=== PATIENT | male | born 1950 | race Caucasian/White ===

== ENCOUNTER 2016-08-26 12:28 | Emergency (ER) | payer OTHER ==
[~2016-08-26] VITALS: Ht 172.7 cm; Wt 63.9 kg
[~2016-08-26 12:28] MED LIST: AMLO10TA4 PO; ASPI81TA28 PO; LISI-792 PO
[2016-08-26 12:32] VITALS: TEMP 36.5; Ht 172.7 cm; Wt 63.9 kg
[2016-08-26 12:59] VITALS: O2SAT 98
[2016-08-26 13:02] LABS: HEMATOCRIT 36.6 % (42-52); MEAN CELL VOLUME 89.1 fL (80-100); MEAN CORPUSCULAR HEMOGLOBIN 31.1 pg (25-34); PLATELET COUNT 196 K/uL (130-400); RED BLOOD COUNT 4.11 M/uL (4.7-6.1); WHITE BLOOD COUNT 7.47 K/uL (4.8-10.8)
--- NOTE | 2016-08-26 13:10 | DIAGNOSTIC IMAGING REPORT ---
CHEST ONE VIEW PORTABLE CLINICAL HISTORY: Atypical chest pain COMPARISON STUDY: 06/28/2015 FINDINGS: The cardiac and mediastinal contours are normal. There is no evidence of focal pulmonary consolidation. There is no evidence of failure. No pleural effusions are visualized.[ There is mild biapical scarring. IMPRESSION: Biapical scarring. No acute findings. Electronically signed by: Kaushik Lemons M.D. 08/26/2016 1:09 PM Dictated Date/Time: 08/26/2016 1:09 PM
[2016-08-26 13:21] LABS: BUN/CREATININE RATIO 16.4 (10-20); CALCIUM 8.9 mg/dl (8.5-10.1); CREATININE 0.81 mg/dl (0.60-1.40); POTASSIUM 3.7 mmol/L (3.5-5.1)
[2016-08-26 13:26] LABS: ALB/GLOB RATIO 1.1 (0.9-2); CKMB/CK RATIO 1.3 (0-3.0)
--- NOTE | 2016-08-26 13:30 | EMERGENCY ROOM VISIT NOTE ---
History Report prepared by Laryibe: Nikki Braswell Under the Supervision of: Dr. Russ Lorenzo D.O. First contact with patient: 13:19 Chief Complaint: CHEST PAIN Stated Complaint: CHEST DISCOMFORT Nursing Triage Summary: pt. had a sudden onset of chest pain, lasted approx 1 minute, numbness in the left arm, symptoms resolved, he said, "I didn't get pain, it just hurt right here", pt. pointed to substernal area History of Present Illness The patient is a 66 year old male who presents to the Emergency Room via ambulance with complaints of an episode of central chest pain about 2 hours ago. The patient notes that the pain started while he was standing on his porch. He also felt nauseated and as if his arms were falling asleep. His symptoms lasted a few minutes before resolving. The patient had a cardiac catheterization last year and was told that everything looked fine. He also had a stress test last year. Denies shortness of breath or other complaints. No history of chest trauma. Source of History: patient Onset: 2 hours ago Position: chest (central) Timing: other (episode) Associated Symptoms: + nausea, No SOB Note: Other symptoms: arms felt like they were falling asleep Review of Systems See HPI for pertinent positives & negatives. A total of 10 systems reviewed and were otherwise negative. Past Medical & Surgical Medical Problems: (1) Acute appendicitis (2) ALCOHOL ABUSE-UNSPEC (3) CHOLESTEATOMA NOS (4) CHRONIC SINUSITIS NOS (5) DEHYDRATION (6) HYPERTENSION NOS (7) NEAR Surgical Problems: (1) H/O right heart catheterization Family History Hypertension Social History Smoking Status: Current Every Day Smoker Alcohol Use: heavy Drug Use: none Marital Status: Housing Status: lives with significant other Occupation Status: employed Current/Historical Medications Scheduled Amlodipine Besylate (Norvasc), 10 MG PO DAILY Aspirin (Aspirin Ec), 81 MG PO DAILY Lisinopril (Zestril), 20 MG PO BID Allergies Coded Allergies: No Known Allergies (Verified , 06/28/15) Physical Exam Vital Signs Date Time Temp Pulse Resp B/P Pulse Ox O2 Delivery O2 Flow Rate FiO2 08/26/16 13:15 60 16 132/66 99 Room Air 08/26/16 12:59 74 18 98 Room Air 08/26/16 12:59 98 Room Air 08/26/16 12:42 61 08/26/16 12:32 36.5 55 16 157/73 100 Room Air 08/26/16 12:32 Room Air Physical Exam CONSTITUTIONAL/VITAL SIGNS: Reviewed / noted above. GENERAL: Non-toxic in appearance. INTEGUMENTARY: Warm, dry, and [place]. HEAD: Normocephalic. EYES: without scleral icterus or trauma. ENT/OROPHARYNX: clear and moist. LYMPHADENOPATHY/NECK: Is supple without lymphadenopathy or meningismus. RESPIRATORY: Lungs clear and equal. CARDIOVASCULAR: Regular rate and rhythm. GI/ABDOMEN: Soft and nontender. No organomegaly or pulsatile mass. No rebound or guarding. Normal bowel sounds. EXTREMITIES: Warm and well perfused. BACK: No CVA tenderness. NEUROLOGICAL: Intact without focal deficits. PSYCHIATRIC: normal affect. MUSCULOSKELETAL: Normally developed with good muscle tone. Medical Decision & Procedures ER Provider Diagnostic Interpretation: Radiology results as stated below per my review and radiologist interpretation: CHEST ONE VIEW PORTABLE CLINICAL HISTORY: Atypical chest pain COMPARISON STUDY: 06/28/2015 FINDINGS: The cardiac and mediastinal contours are normal. There is no evidence of focal pulmonary consolidation. There is no evidence of failure. No pleural effusions are visualized.[ There is mild biapical scarring. IMPRESSION: Biapical scarring. No acute findings. Electronically signed by: Kaushik Lemons M.D. 08/26/2016 1:09 PM Dictated Date/Time: 08/26/2016 1:09 PM Laboratory Results 08/26/16 12:35 08/26/16 12:35 Test 08/26/16 12:35 08/26/16 12:58 Red Blood Count 4.11 M/uL (4.7-6.1) Mean Corpuscular Volume 89.1 fL (80-100) Mean Corpuscular Hemoglobin 31.1 pg (25-34) Mean Corpuscular Hemoglobin Concent 35.0 g/dl (32-36) RDW Standard Deviation 40.2 fL (36.4-46.3) RDW Coefficient of Variation 12.5 % (11.5-14.5) Mean Platelet Volume 10.0 fL (7.4-10.4) Anion Gap 9.0 mmol/L (3-11) Est Creatinine Clear Calc Drug Dose 78.9 ml/min Estimated GFR () 105.8 Estimated GFR (Non- 91.3 BUN/Creatinine Ratio 16.4 (10-20) Calcium Level 8.9 mg/dl (8.5-10.1) Total Bilirubin 0.4 mg/dl (0.2-1) Aspartate Amino Transf (AST/SGOT) 15 U/L (15-37) Alanine Aminotransferase (ALT/SGPT) 15 U/L (12-78) Alkaline Phosphatase 79 U/L (45-117) Total Creatine Kinase 54 U/L (39-308) Creatine Kinase MB 0.7 ng/ml (0.5-3.6) Creatine Kinase MB Ratio 1.3 (0-3.0) Total Protein 7.5 gm/dl (6.4-8.2) Albumin 4.0 gm/dl (3.4-5.0) Globulin 3.5 gm/dl (2.5-4.0) Albumin/Globulin Ratio 1.1 (0.9-2) Bedside Troponin I 0.010 ng/ml (0-0.045) Laboratory results as stated above per my review. ECG Indication: chest pain Rate (beats per minute): 64 Rhythm: normal sinus Findings: LBBB, no ectopy Comparison ECG Date: 08/26/16 Change: no significant change ED Course 1321: The patient was evaluated in room C3. A complete history and physical examination was performed. I discussed the results and findings with the patient. He verbalized agreement of the treatment plan. The patient was discharged home. Medical Decision the differential was considered includes acute myocardial infarction, acute coronary syndrome, myocarditis, pericarditis, pericardial effusions /tamponad, esophageal perforation, thoracic aortic dissection, pulmonary embolism, pneumonia, pneumothorax, pancreatitis, shingles, acute cholecystitis, perforated abdominal viscus. This is a 66-year-old male who presents to the ED with a chief complaint of upper chest discomfort. The patient states that he developed symptoms when he stood up this morning. He states that it was at the base of his throat. It lasted for a couple minutes and was associated with some nausea and his arms felt like it went to sleep. This occurred around 11:30. He states that his symptoms have completely resolved. He denies any other symptoms. No additional associated symptoms. He did have a little nausea when it occurred. The patient states that he had a recent cardiac catheterization the past year that was clean. He denies any other symptoms. His vital signs are normal. His exam was normal. Chest x-ray was negative for acute disease. Cardiac enzymes are normal. EKG shows a normal sinus rhythm with a chronic left bundle branch block. The patient is felt to be stable for discharge and outpatient follow-up. Impression Primary Impression: Non-cardiac chest pain Scribe Attestation The scribe's documentation has been prepared under my direction and personally reviewed by me in its entirety. I confirm that the note above accurately reflects all work, treatment, procedures, and medical decision making performed by me. Departure Information Dispostion Home / Self-Care Referrals Mehdi Suarez M.D. (PCP) Patient Instructions My [facility] Additional Instructions Follow-up with your doctor for further care and evaluation in 1-2 days. Return to the emergency department for worsening or new symptoms or any concerns. You have been examined and treated today on an emergency basis only. This is not a substitute for, or an effort to provide, complete comprehensive medical care. It is impossible to recognize and treat all injuries or illnesses in a single emergency department visit. It is therefore important that you follow up closely with your doctor. Call as soon as possible for an appointment.
[2016-08-26 13:31] LABS: PROTHROMBIN TIME (PATIENT) 10.5 SECONDS (9.0-12.0)
[2016-08-26 13:59] VITALS: BP 133/61; PULSE 58; O2SAT 97
== END 2016-08-26 14:05 | disposition home or self-care (01) ==
LOC: EDBD 12:28 → C.EDC 12:30
DX: R07.89 Other chest pain (principal); R11.0 Nausea; H71.90 Unspecified cholesteatoma, unspecified ear; J32.9 Chronic sinusitis, unspecified; I10 Essential (primary) hypertension; F17.200 Nicotine dependence, unspecified, uncomplicated; F10.10 Alcohol abuse, uncomplicated; Z79.82 Long term (current) use of aspirin; Z82.49 Family history of ischemic heart disease and other diseases of the circulatory system; I44.7 Left bundle-branch block, unspecified

== ENCOUNTER 2016-12-12 08:03 | Emergency (ER) | payer OTHER ==
[~2016-12-12] VITALS: Ht 162.6 cm; Wt 62.7 kg
[2016-12-12 08:04] VITALS: Ht 162.6 cm; Wt 62.7 kg
[2016-12-12] MEDS ORDERED: SODIUM CHLORIDE 0.9% 1000ML 1,000 ML IV STA (08:21)
--- NOTE | 2016-12-12 08:38 | EMERGENCY ROOM VISIT NOTE ---
History First contact with patient: 08:10 Chief Complaint: WEAKNESS Stated Complaint: WEAKNESS,SHAKINESS Nursing Triage Summary: pt c/o generalized weakness and shaking all over since yesterday History of Present Illness The patient is a 66 year old male who presents to the Emergency Room with complaints of generalized weakness, shaking and chills started yesterday afternoon. 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 He does note that it was very hot yesterday and he did not keep up with his drinking as well as he should have. He states that he felt worse this morning, prompting him to come to the emergency department. He denies any pain , just states he feels very weak and tired. Denies any recent changes in medications. He states he has been feeling generally in his normal state of health until yesterday. He denies any headaches, neck pain, chest pain, shortness of breath, palpitations, dizziness or passing out, abdominal pain, back pain, nausea/vomiting, diarrhea, constipation, dysuria or urinary frequency , rash. He does admit to heavy alcohol use in the past, but states he has been sober for one year and denies any recent alcohol use. Review of Systems A complete 10 point review of systems was reviewed with the patient with pertinent positives and negatives as per history of present illness. All else were negative. Past Medical/Surgical History Medical Problems: (1) Acute appendicitis (2) ALCOHOL ABUSE-UNSPEC (3) CHOLESTEATOMA NOS (4) CHRONIC SINUSITIS NOS (5) DEHYDRATION (6) HYPERTENSION NOS (7) NEAR Surgical Problems: (1) H/O right heart catheterization Family History Hypertension Social History Smoking Status: Current Every Day Smoker Alcohol Use: heavy Drug Use: none Marital Status: Housing Status: lives with significant other Occupation Status: employed Current/Historical Medications Scheduled Amlodipine Besylate (Norvasc), 10 MG PO DAILY Aspirin (Aspirin Ec), 81 MG PO DAILY Lisinopril (Zestril), 20 MG PO BID Allergies Coded Allergies: No Known Allergies (Verified , 12/12/16) Physical Exam Vital Signs Date Time Temp Pulse Resp B/P (MAP) Pulse Ox O2 Delivery O2 Flow Rate FiO2 12/12/16 14:02 56 155/88 97 12/12/16 13:01 140/71 12/12/16 12:38 56 12/12/16 12:38 55 20 98 12/12/16 12:31 137/68 12/12/16 12:08 57 20 97 12/12/16 12:01 143/66 12/12/16 11:38 64 15 97 12/12/16 11:08 62 16 97 12/12/16 11:04 60 20 143/66 97 Room Air 12/12/16 11:01 143/66 12/12/16 10:38 61 20 96 12/12/16 10:31 120/60 12/12/16 10:08 61 17 97 12/12/16 10:01 139/61 12/12/16 09:51 139/60 12/12/16 09:00 98 Room Air 12/12/16 08:44 36.2 12/12/16 08:38 68 20 98 12/12/16 08:37 76 12/12/16 08:33 69 19 98 12/12/16 08:32 162/73 12/12/16 08:13 172/76 12/12/16 08:04 36.5 90 18 176/78 98 Room Air Physical Exam CONSTITUTIONAL: No acute distress. Mildly dehydrated. Well appearing and well nourished. Alert and oriented X 4 with normal affect. HEENT: Normocephalic, atraumatic. Pupils equal, round and reactive to light, EOMI. TMs normal. Pharynx normal. Dry mucous membranes. NECK: Supple, full active range of motion without discomfort. RESPIRATORY: Clear to auscultation bilaterally with no wheezing, crackles, rhonchi or stridor. Equal expansion bilaterally. CARDIOVASCULAR: Regular rate and rhythm with no murmurs, rubs or gallops. Normal peripheral perfusion. No edema. GASTROINTESTINAL: Soft, nontender, nondistended. Bowel sounds present in all quadrants. MUSCULOSKELETAL: Full range of motion of all joints without discomfort. INTEGUMENTARY: No rash or other significant dermatologic conditions noted. NEUROLOGIC: Cranial nerves II-XII grossly intact. No focal neurologic deficits noted. No pronator drift. Normal strength, normal sensation, normal coordination, normal gait, normal speech. Medical Decision & Procedures ER Provider Diagnostic Interpretation: CHEST 2 VIEWS ROUTINE CLINICAL HISTORY: cough, weakness, eval pna COMPARISON STUDY: 08/26/2016 FINDINGS: Moderate emphysematous change. Chronic apical pleural thickening. No focal infiltrate. IMPRESSION: Chronic change. No acute process. Laboratory Results 12/12/16 08:30 Red Blood Count 4.49, Mean Corpuscular Volume 91.3, Mean Corpuscular Hemoglobin 31.4, Mean Corpuscular Hemoglobin Concent 34.4, Mean Platelet Volume 9.9, Neutrophils (%) (Auto) 65.0, Lymphocytes (%) (Auto) 27.0, Monocytes (%) (Auto) 5.6, Eosinophils (%) (Auto) 1.5, Basophils (%) (Auto) 0.7, Neutrophils # (Auto) 3.82, Lymphocytes # (Auto) 1.59, Monocytes # (Auto) 0.33, Eosinophils # (Auto) 0.09, Basophils # (Auto) 0.04 12/12/16 08:30 Test 12/12/16 08:12 12/12/16 08:30 12/12/16 08:45 12/12/16 08:57 Urine Color YELLOW Urine Appearance CLEAR (CLEAR) Urine pH 7.0 (4.5-7.5) Urine Specific [place] 1.012 (1.000-1.030) Urine Protein NEG (NEG) Urine Glucose (UA) NEG (NEG) Urine Ketones NEG (NEG) Urine Occult Blood NEG (NEG) Urine Nitrite NEG (NEG) Urine Bilirubin NEG (NEG) Urine Urobilinogen NEG (NEG) Urine Leukocyte Esterase NEG (NEG) White Blood Count 5.88 K/uL (4.8-10.8) Red Blood Count 4.49 M/uL (4.7-6.1) Hemoglobin 14.1 g/dL (14.0-18.0) Hematocrit 41.0 % (42-52) Mean Corpuscular Volume 91.3 fL (80-100) Mean Corpuscular Hemoglobin 31.4 pg (25-34) Mean Corpuscular Hemoglobin Concent 34.4 g/dl (32-36) Platelet Count 208 K/uL (130-400) Mean Platelet Volume 9.9 fL (7.4-10.4) Neutrophils (%) (Auto) 65.0 % Lymphocytes (%) (Auto) 27.0 % Monocytes (%) (Auto) 5.6 % Eosinophils (%) (Auto) 1.5 % Basophils (%) (Auto) 0.7 % Neutrophils # (Auto) 3.82 K/uL (1.4-6.5) Lymphocytes # (Auto) 1.59 K/uL (1.2-3.4) Monocytes # (Auto) 0.33 K/uL (0.11-0.59) Eosinophils # (Auto) 0.09 K/uL (0-0.5) Basophils # (Auto) 0.04 K/uL (0-0.2) RDW Standard Deviation 42.6 fL (36.4-46.3) RDW Coefficient of Variation 12.7 % (11.5-14.5) Immature Granulocyte % (Auto) 0.2 % Immature Granulocyte # (Auto) 0.01 K/uL (0.00-0.02) Anion Gap 5.0 mmol/L (3-11) Est Creatinine Clear Calc Drug Dose 75.9 ml/min Estimated GFR () 107.5 Estimated GFR (Non- 92.8 BUN/Creatinine Ratio 14.9 (10-20) Calcium Level 9.0 mg/dl (8.5-10.1) Magnesium Level 1.9 mg/dl (1.8-2.4) Total Bilirubin 0.7 mg/dl (0.2-1) Direct Bilirubin 0.1 mg/dl (0-0.2) Aspartate Amino Transf (AST/SGOT) 21 U/L (15-37) Alanine Aminotransferase (ALT/SGPT) 21 U/L (12-78) Alkaline Phosphatase 72 U/L (45-117) Troponin I < 0.015 ng/ml (0-0.045) Total Protein 7.7 gm/dl (6.4-8.2) Albumin 4.3 gm/dl (3.4-5.0) Lipase 153 U/L (73-393) Thyroid Stimulating Hormone (TSH) 0.826 uIu/ml (0.300-4.500) Ethyl Alcohol mg/dL < 3.0 mg/dl (0-3) Bedside Lactic Acid Venous 0.77 mmol/L (0.90-1.70) Medications Administered Medications (Trade) Dose Ordered Sig/Turner Route Start Time Stop Time Status Last Admin Dose Admin Sodium Chloride 1,000 ml @ 999 mls/hr Q1H1M STAT IV 12/12/16 08:21 12/12/16 09:21 DC 12/12/16 08:46 999 MLS/HR ECG Indication: weakness Rate (beats per minute): 71 Rhythm: normal sinus Findings: LBBB, no acute ischemic change, no ectopy Change: no significant change (08/26/2016; LBBB is not new) Medical Decision CC: Patient presenting with complaint of generalized weakness, shaking and chills Interpretation of Labs: No leukocytosis, no anemia, no significant electrolyte abnormalities, normal renal function, normal liver enzymes and lipase, lactic acid normal, no UTI. Differential Diagnosis: Includes, but not limited to dehydration, electrolyte abnormality, anemia, infection/sepsis, pneumonia, UTI, ears. Medication Reconciliation: I attest that I have personally reviewed the patient' s current medication list. Vital signs review: I reviewed the patient's vital signs and interpret them as follows: T: Afebrile; BP: Hypertensive; HR: Within normal limits; RR: Within normal limits; Pulse Ox: Within normal limits on room air. Blood pressure screening: The patient was found to have an elevated blood pressure and was referred to their primary doctor for recheck and further treatment. Summary: Patient was evaluated at bedside, history of physical exam performed. Alert and cooperative, no acute distress. Does look mildly dehydrated but not clinically he makes or pale. Neurologic exam intact with no focal deficits. Patient is diffusely tremulous, which is exacerbated with exertion. He is noted to be afebrile, even by rectal temp. Orders were placed at bedside for labs, urine, blood and urine cultures, lactic acid, chest x-ray, EKG, IV fluid bolus to evaluate for possible infection. Patient discussed with Dr. Yoder, who agrees with my assessment and plan. Labs reviewed as above, no significant abnormalities. EKG shows left bundle branch block, this is not new and EKG appears unchanged from previous. Chest x-ray reviewed, no acute abnormality. Patient reassessed multiple times throughout ED stay, he reports resolution of his symptoms after receiving a liter of IV fluids. There is some concern from patient's history that his symptoms could be related to dehydration and over stimulation to heat yesterday. Patient was instructed to continue oral hydration at home and to follow closely with his PCP. He was also given strict return precautions should his symptoms worsen in any way, he verbalized understanding. Patient was discharged home in stable condition and ambulatory. Impression Primary Impression: Generalized weakness Additional Impression: Chills (without fever) Departure Information Dispostion Home / Self-Care Condition GOOD Referrals Mehdi Suarez M.D. (PCP) Patient Instructions ED Weakness [facility], My [facility] Additional Instructions You have been treated in the Emergency Department today for generalized weakness and chills. Laboratory results and imaging have ruled out any emergent reasons for further evaluation or admission. Your symptoms may have been from mild dehydration. It is ESSENTIAL that you maintain adequate hydration with oral fluids! Some suggestions include: - Water is the IDEAL replacement for lost fluids. You should initially sip at the water to help facilitate increased intestinal absorption rate and to decrease the possibility of nausea/vomiting. - Carbohydrate/Electrolyte-Containing Drinks (i.e. Gatorade, Powerade, Pedialyte). All of these are good choices, but it is important to remember that all of these drinks contain a high concentration of sugar. - Popsicles, ice chips, and fruit juices are all other options. - My FAVORITE dehydration remedy is to mix a 1:1 solution of bottled Gatorade with bottled water. This dilution allows for a palatable flavor with added benefit of a reduction in the amount of sugar consumption. As with all Emergency Department visits, you should follow-up with your Primary Care Provider in 2-3 days for reevaluation. Return to the Emergency Department if your current symptoms worsen despite treatment course outlined above, or if you develop any of the following symptoms : Fevers or worsening chills, chest pain, shortness of breath, abdominal pain, worsening weakness, dizziness or passing out, confusion, sluggishness, or decreased urine output. Problem Qualifiers
[2016-12-12 08:44] VITALS: TEMP 36.2
[2016-12-12 08:48] LABS: BASO % 0.7 %; BASO ABS # 0.04 K/uL (0-0.2); COMPLETE YES; EOS % 1.5 %; IG% 0.2 %; LYMPH ABS # 1.59 K/uL (1.2-3.4); MEAN CELL VOLUME 91.3 fL (80-100); MEAN CORPUSCULAR HEMOGLOBIN 31.4 pg (25-34); MEAN CORPUSCULAR HGB CONC 34.4 g/dl (32-36); MEAN PLATELET VOLUME 9.9 fL (7.4-10.4); MONO % 5.6 %; PLATELET COUNT 208 K/uL (130-400); RED BLOOD COUNT 4.49 M/uL (4.7-6.1); WHITE BLOOD COUNT 5.88 K/uL (4.8-10.8)
[2016-12-12 09:00] VITALS: O2SAT 98
[2016-12-12 09:07] LABS: URINE APPEARANCE CLEAR (CLEAR); URINE BILIRUBIN NEG (NEG); URINE COLOR YELLOW; URINE NITRITE NEG (NEG); URINE SPECIFIC GRAVITY 1.012 (1.000-1.030); UROBILINOGEN NEG (NEG)
--- NOTE | 2016-12-12 09:13 | DIAGNOSTIC IMAGING REPORT ---
CHEST 2 VIEWS ROUTINE CLINICAL HISTORY: cough, weakness, eval pna COMPARISON STUDY: 08/26/2016 FINDINGS: Moderate emphysematous change. Chronic apical pleural thickening. No focal infiltrate. IMPRESSION: Chronic change. No acute process. The above report was generated using voice recognition software. It may contain grammatical, syntax or spelling errors. Electronically signed by: Ta Avila M.D. 12/12/2016 9:12 AM Dictated Date/Time: 12/12/2016 9:11 AM
[2016-12-12 09:15] LABS: MANUAL MICROSCOPIC REQUIRED? NO; REVIEW REQ? NO
[2016-12-12 09:17] LABS: BUN/CREATININE RATIO 14.9 (10-20); CREATININE 0.78 mg/dl (0.60-1.40); MAGNESIUM 1.9 mg/dl (1.8-2.4); POTASSIUM 3.8 mmol/L (3.5-5.1)
[2016-12-12 09:28] LABS: THYROID STIMULATING HORMONE 0.826 uIu/ml (0.300-4.500)
--- NOTE | 2016-12-12 10:52 | EMERGENCY ROOM VISIT NOTE ---
ED Visit Note First contact with patient: 08:10 The patient was seen and examined with Day NUNEZ. I agree with the history, physical and findings. Please see the note for disposition and details. The patient has unremarkable laboratory testing. His ECG does not show any new findings. He has a left bundle branch block. He had nonspecific symptoms. No abnormal findings were noted on physical examination. Diagnostic testing was unremarkable. The patient's symptoms had resolved and he feels better. We discussed conservative management and the patient will follow-up closely in the office. If he has any problems she will come back to the emergency department for reevaluation.
[2016-12-12 14:02] VITALS: BP 155/88; PULSE 56; O2SAT 97
== END 2016-12-12 14:03 | disposition home or self-care (01) ==
LOC: C.EDB 08:04 → C.EDA 14:03
DX: R53.1 Weakness (principal); R68.83 Chills (without fever); I44.7 Left bundle-branch block, unspecified; I10 Essential (primary) hypertension; F17.200 Nicotine dependence, unspecified, uncomplicated; Z98.890 Other specified postprocedural states; Z82.49 Family history of ischemic heart disease and other diseases of the circulatory system; Z79.82 Long term (current) use of aspirin; Z79.899 Other long term (current) drug therapy

== ENCOUNTER 2022-09-19 15:14 | Inpatient (IN) ==
[2022-09-19] MEDS ORDERED: SODIUM CHLORIDE 0.9% 250 ML IV PRN (15:25)
--- NOTE | 2022-09-19 15:37 | Emergency Department Note ---
History of Present Illness General Chief complaint: Syncope Time Seen by Provider: 09/19/22 15:18 Source: patient, family (His and daughter did arrive and I discussed the case with them as well), EMS, RN notes reviewed and old records reviewed Mode of arrival: EMS Limitations: no limitations History of Present Illness This patient is a 72-year-old male who was brought in by EMS after having a syncopal episode after having abdominal pain. He was seen earlier today and had abdominal pain that started after he slipped when bending over to pick something up and pulled something. He did receive Percocet. When I initially evaluated him in the room he seems somewhat obtunded and was difficult to understand. He was noted to be hypotensive and 65 we had an IV established and did a second IV with fluid boluses and put him in Trendelenburg his mentation improved significantly he is having some lower abdominal discomfort. He has no chest pain or shortness of breath no trauma or injury no blood or melena stool. The last time he urinated was this morning has had some constipation. Home Medications Medication Instructions Recorded Confirmed Type aspirin 81 mg tablet,delayed 81 mg PO QAM 07/09/20 09/19/22 History release (Adult Low Dose Aspirin) amlodipine 10 mg tablet 10 mg PO DAILY 09/19/22 09/19/22 History fluticasone propionate 50 2 spray intranasal DAILY 09/19/22 09/19/22 History mcg/actuation nasal spray,suspension lisinopril 20 mg tablet 20 mg PO BID 09/19/22 09/19/22 History meclizine 25 mg tablet 25 mg PO TID PRN Dizziness 09/19/22 09/19/22 History oxycodone-acetaminophen 5 mg-325 1 tab PO Q6H PRN pain #14 tabs 09/19/22 09/19/22 Rx mg tablet (Percocet) rosuvastatin 5 mg tablet 5 mg PO DAILY 09/19/22 09/19/22 History Allergies Allergy/AdvReac Type Severity Reaction Status Date / Time No Known Drug Allergies Allergy Verified 06/16/22 14:44 Past Med/Surg History Medical History Diverticula of colon Hypercholesteremia Hypertension Syncope Surgical History H/O right heart catheterization Hx of mastoidectomy Family History Other No family history of adverse response to anesthesia No family history of bleeding disorder Social History Smoking Status: Current every day smoker Tobacco Type: Cigarettes packs per day: 0.5; Hx Alcohol Use: No Hx Substance Use: No Preferred Language: Czech Feels Safe at Home: Yes Review of Systems A total of 10 systems reviewed and were otherwise negative Physical Exam Vital Signs Vital Signs - 24 hr 09/19/22 15:44 Pulse Rate 97 H General: Older male who appears somewhat mottled and mumbling when I try to talk to him in no acute respiratory distress, breathing comfortably on room air. Normal speech HEENT: Normal cephalic atraumatic. Pupils are equal round and reactive to light. Extraocular movements are intact. Oropharynx is pink with moist mucous membranes. No swelling of the mouth lips or tongue. Neck: Supple with a midline trachea. No meningeal signs or stiffness, no JVD or bruits. No Stridor. Chest: Clear to auscultation bilaterally. No wheezes or rhonchi. No increased work of breathing. Heart: Regular rate and rhythm without murmurs or gallops. Abdomen: Soft nontender, nondistended without rebound guarding or rigidity. Extremities: No cyanosis clubbing or edema. No calf tenderness or assymetry Spine/Back. Non tender to palpation. No CVA tenderness Skin: Good turgor without rashes. Neurologic exam: Cranial nerves two through 12 are intact. Motor and sensation are intact and symmetrical throughout. Course Administered Medications Discontinued Medications Ioversol (Optiray 320 500ml) 114 ml IV ONCE ONE Stop: 09/19/22 15:59 Last Admin: 09/19/22 15:58 Dose: 114 ml Documented By: YIMI Ondansetron HCl (Ondansetron Inj 2 Mg/Ml 2 Ml Vial) 4 mg IV NOW STA Stop: 09/19/22 16:03 Last Admin: 09/19/22 16:10 Dose: 4 mg Documented By: PAMELA Critical Care Time Critical Care Time: Yes Total Critical Care Time: 60 Due to the patient's hypotension, being critically ill, need for multiple IVs, IV fluids IV medications multiple consultations frequent reassessment and expediated care, I have personally spent greater than 60 minutes of critical care time in the direct management of this patient. This includes bedside care, interpretation of diagnostic studies, and testing, discussion with consultants, patient, and family members, and other required patient management activities. This 60 minutes is in excess of all separately billable procedures. Medical Decision Making Differential Diagnosis Intra-abdominal process, vasovagal, cardiac disease, aneurysm, infection, ane nader, GI bleed, electrolyte or metabolic abnormality Medical Records Attestation: I reviewed the patient's medical records. Home Medications Current Medication List: was personally reviewed by fl Laboratory Data Attestation: I reviewed the patient's lab results. 09/19/22 15:35 09/19/22 15:35 Lab Results 09/19/22 09/19/22 09/19/22 Range/Units 15:23 15:35 15:35 WBC 6.18 (4.8-10.8) K/ul RBC 4.66 L (4.70-6.10) M/uL Hgb 14.6 (14.0-18.0) g/dl Hct 44.2 (42.0-52.0) % MCV 94.8 (80.0-100.0) fL MCH 31.3 (25.0-34.0) pg MCHC 33.0 (32.0-36.0) g/dL RDW Std Deviation 42.6 (36.4-46.3) fL RDW Coeff of Samantha 12.3 (11.5-14.5) % Plt Count 257 (130-400) K/uL MPV 10.3 (9.4-12.4) fL Immature Gran % (Auto) 0.6 % Neut % (Auto) 75.3 % Lymph % (Auto) 18.9 % [place] % (Auto) 4.5 % Eos % (Auto) 0.2 % Baso % (Auto) 0.5 % Neut # (Auto) 4.65 (1.40-6.50) K/uL Lymph # (Auto) 1.17 L (1.2-3.4) K/uL [place] # (Auto) 0.28 (0.11-0.59) K/uL Eos # (Auto) 0.01 (0-0.50) K/uL Baso # (Auto) 0.03 (0-0.2) K/uL Immature Gran # (Auto) 0.04 (0.01-0.20) K/uL PT 11.9 (9.0-12.0) Seconds INR 1.1 (0.9-1.1) APTT 24.7 (21.0-31.0) Seconds PTT Ratio 0.9 Sodium Potassium Chloride (98-107) mmol/L Carbon Dioxide (21-32) mmol/L Anion Gap BUN (6-23) mg/dl Creatinine (0.6-1.4) mg/dl Est Cr Clr Drug Dosing Est GFR ( Amer) ml/min Est GFR (Non-Af Amer) ml/min BUN/Creatinine Ratio (10-20) Glucose (70-99(Fasting)) mg/dl POC Glucose 83 (70-99) mg/dl Lactate (0.4-2.0) mmol/L Calcium (8.6-10.3) mg/dl Magnesium Total Bilirubin (0.2-1.0) mg/dl AST ALT (7-52) U/L Alkaline Phosphatase (34-104) U/L Troponin I High Sens (0-20) pg/ml Total Protein (6.0-8.3) gm/dl Albumin (3.4-5.0) gm/dl Globulin (2.5-4.0) gm/dl Albumin/Globulin Ratio (0.9-2) TSH (0.300-4.500) uIu/ml Free T4 (0.61-1.60) ng/dl Blood Type Antibody Screen Crossmatch 09/19/22 09/19/22 09/19/22 Range/Units 15:35 15:35 16:22 WBC (4.8-10.8) K/ul RBC (4.70-6.10) M/uL Hgb (14.0-18.0) g/dl Hct (42.0-52.0) % MCV (80.0-100.0) fL MCH (25.0-34.0) pg MCHC (32.0-36.0) g/dL RDW Std Deviation (36.4-46.3) fL RDW Coeff of Samantha (11.5-14.5) % Plt Count (130-400) K/uL MPV (9.4-12.4) fL Immature Gran % (Auto) % Neut % (Auto) % Lymph % (Auto) % [place] % (Auto) % Eos % (Auto) % Baso % (Auto) % Neut # (Auto) (1.40-6.50) K/uL Lymph # (Auto) (1.2-3.4) K/uL [place] # (Auto) (0.11-0.59) K/uL Eos # (Auto) (0-0.50) K/uL Baso # (Auto) (0-0.2) K/uL Immature Gran # (Auto) (0.01-0.20) K/uL PT (9.0-12.0) Seconds INR (0.9-1.1) APTT (21.0-31.0) Seconds PTT Ratio Sodium TNP Potassium TNP Chloride 105 (98-107) mmol/L Carbon Dioxide 18 L (21-32) mmol/L Anion Gap TNP BUN 22 (6-23) mg/dl Creatinine 1.90 H (0.6-1.4) mg/dl Est Cr Clr Drug Dosing Not Reportable Est GFR ( Amer) 39.4 ml/min Est GFR (Non-Af Amer) 34.0 ml/min BUN/Creatinine Ratio 11.6 (10-20) Glucose 85 (70-99(Fasting)) mg/dl POC Glucose (70-99) mg/dl Lactate (0.4-2.0) mmol/L Calcium 9.4 (8.6-10.3) mg/dl Magnesium TNP Total Bilirubin 0.9 (0.2-1.0) mg/dl AST TNP ALT 12 (7-52) U/L Alkaline Phosphatase 77 (34-104) U/L Troponin I High Sens 177.9 H* (0-20) pg/ml Total Protein 6.4 (6.0-8.3) gm/dl Albumin 3.8 (3.4-5.0) gm/dl Globulin 2.6 (2.5-4.0) gm/dl Albumin/Globulin Ratio 1.5 (0.9-2) TSH 6.984 H (0.300-4.500) uIu/ml Free T4 1.00 (0.61-1.60) ng/dl Blood Type A Positive Antibody Screen NEGATIVE Crossmatch See Detail 09/19/22 09/19/22 09/19/22 Range/Units 16:22 16:39 17:02 WBC (4.8-10.8) K/ul RBC (4.70-6.10) M/uL Hgb (14.0-18.0) g/dl Hct (42.0-52.0) % MCV (80.0-100.0) fL MCH (25.0-34.0) pg MCHC (32.0-36.0) g/dL RDW Std Deviation (36.4-46.3) fL RDW Coeff of Samantha (11.5-14.5) % Plt Count (130-400) K/uL MPV (9.4-12.4) fL Immature Gran % (Auto) % Neut % (Auto) % Lymph % (Auto) % [place] % (Auto) % Eos % (Auto) % Baso % (Auto) % Neut # (Auto) (1.40-6.50) K/uL Lymph # (Auto) (1.2-3.4) K/uL [place] # (Auto) (0.11-0.59) K/uL Eos # (Auto) (0-0.50) K/uL Baso # (Auto) (0-0.2) K/uL Immature Gran # (Auto) (0.01-0.20) K/uL PT (9.0-12.0) Seconds INR (0.9-1.1) APTT (21.0-31.0) Seconds PTT Ratio Sodium 138 Potassium 3.6 Chloride (98-107) mmol/L Carbon Dioxide (21-32) mmol/L Anion Gap BUN (6-23) mg/dl Creatinine (0.6-1.4) mg/dl Est Cr Clr Drug Dosing Est GFR ( Amer) ml/min Est GFR (Non-Af Amer) ml/min BUN/Creatinine Ratio (10-20) Glucose (70-99(Fasting)) mg/dl POC Glucose (70-99) mg/dl Lactate 6.7 H* 1.1 (0.4-2.0) mmol/L Calcium (8.6-10.3) mg/dl Magnesium 1.6 L Total Bilirubin (0.2-1.0) mg/dl AST 21 ALT (7-52) U/L Alkaline Phosphatase (34-104) U/L Troponin I High Sens (0-20) pg/ml Total Protein (6.0-8.3) gm/dl Albumin (3.4-5.0) gm/dl Globulin (2.5-4.0) gm/dl Albumin/Globulin Ratio (0.9-2) TSH (0.300-4.500) uIu/ml Free T4 (0.61-1.60) ng/dl Blood Type Antibody Screen Crossmatch Imaging Data Attestation: I personally reviewed and interpreted this imaging study as follows: My Impression: Chest x-rayno acute infiltrate, failure, pneumothorax seen. No free air. Radiologist's Impression: Chest X-Ray 09/19/22 15:24 XR chest 1V portable HISTORY: 72 years-old Male weakness acute weakness COMPARISON: 08/26/2016 TECHNIQUE: AP view of the chest FINDINGS: Upper lobe fibrotic changes redemonstrated with superior hilar retraction. Cardiac silhouette is normal. No pneumothorax, pleural effusion or overt pulmonary edema. Bones appear grossly intact. IMPRESSION: Biapical pleural-parenchymal scarring redemonstrated without acute process. ACT 112: Negative or not required by law. The above report was generated using voice recognition software. It may contain grammatical, syntax or spelling errors. Electronically signed by: Kev Navarro M.D. 09/19/2022 3:45 PM Abdomen/Pelvis CT 09/19/22 15:[address] WITH IV CONTRAST HISTORY: Acute generalized abdominal pain with hypotension hypotensive, abd pain TECHNIQUE: Multiaxial CT images of the abdomen and pelvis were performed following the IV administration of 114 cc of Optiray, A dose lowering technique was utilized adhering to the principles of ALARA. COMPARISON STUDY: CTA chest of same day, CT abdomen pelvis 06/28/2015 FINDINGS: Mild cardiomegaly with coronary artery calcifications. Mild bibasilar atelectasis. Limited study secondary to upper extremity positioning and respiratory motion. Diminutive spleen. Unremarkable adrenal glands, pancreas, gallbladder and liver. The kidneys are within normal limits. No hydronephrosis. Heterogeneous prostamegaly with a 1.9 cm focus of decreased the left central prostate. Atherosclerosis of the aorta and branch vessels. No aneurysm identified. There is no lymphadenopathy. Patent portal vein. There is a large amount of pneumoperitoneum, as pronounced within the central and upper anterior abdomen. Fluid-filled distended distal esophagus. Distended fluid-filled loops of jejunum measure up to approximately 3.5 cm. Colonic diverticulosis. Wall thickening is noted throughout several loops of large and small bowel. Appendectomy. Exact site of bowel perforation is not identified. No drainable fluid collection. Small volume of abdominal pelvic ascites with m esenteric edema. Healed chronic posterior left-sided rib fractures. No acute fracture. Degenerative changes of the spine, pelvis and hips. IMPRESSION: 1. Large amount of pneumoperitoneum compatible with perforated viscus. Definite site of perforation is not definitively seen however there is colonic diverticular disease which raises the possibility of colonic perforation. 2. Several loops of small bowel are mildly dilated and fluid-filled and several loops of large and small bowel demonstrate wall thickening, likely reactive secondary to the perforated viscus. A low-grade small bowel obstruction could appear similarly. 3. Small volume of abdominopelvic ascites. 4. Distended fluid-filled distal esophagus. 5. Prostamegaly with chronic bladder outlet obstruction. 6. Additional findings as above. ACT 112: Negative or not required by law. The above report was generated using voice recognition software. It may contain grammatical, syntax or spelling errors. Electronically signed by: Kev Navarro M.D. 09/19/2022 4:11 PM Chest CTA 09/19/22 15:33 CT angio chest PE protocol HISTORY: 72 years-old Male with PE. Acute hypotension with shortness of breath, chest and abdominal pain TECHNIQUE: Multiple CTA images of the chest were obtained after the intravenous administration of 114 ml Optiray. Coronal and sagittal MIPS were obtained from the axial data set and were submitted for review. All measurements were obtained according to NASCET criteria. A dose lowering technique was utilized adhering to the principles of ALARA. COMPARISON: CT abdomen and pelvis of same day, chest CT 04/22/2012 FINDINGS: CTA: Mild cardiomegaly. Extensive coronary artery calcifications. Atherosclerosis of the aorta without aneurysm. No pulmonary emboli identified. CT CHEST: No thyroid nodule or lymphadenopathy. Moderate severe emphysema with biapical pleural-parenchymal scarring. Mild subsegmental bibasilar atelectasis. Bronchial wall thickening as suggestive of pneumonia. Mild tracheobronchial secretions. Large amount of upper abdominal pneumoperitoneum with ascites. Fluid-filled and distended esophagus. Layering debris noted within the gastric lumen. Age- indeterminate compression deformities of the T4, T6 and T7 vertebral bodies without retropulsion which are favored to be chronic. IMPRESSION: 1. Emphysema with bronchitis and mild tracheobronchial secretions. 2. Large amount of upper abdominal pneumoperitoneum with ascites. Findings comp atible with perforated viscus. Please refer to the CT abdomen and pelvis study of same day for further discussion. 3. No pulmonary emboli identified. 4. Distended fluid-filled esophagus. ACT 112: Negative or not required by law. The above report was generated using voice recognition software. It may contain grammatical, syntax or spelling errors. Electronically signed by: Kev Navarro M.D. 09/19/2022 4:[address] 09/19/22 15:47 CT head/brain wo con CLINICAL HISTORY: 72 years-old Male with syncope. Acute syncope TECHNIQUE: Multiple axial CT images of the head were obtained without contrast. A dose lowering technique was utilized adhering to the principles of ALARA. CT DOSE: 1472.59 mGy.cm COMPARISON: 11/22/2014 FINDINGS: No acute intracranial hemorrhage, midline shift, intracranial mass, hydroceph alus, territorial ischemia or abnormal extra-axial collection. Involutional changes with chronic microvascular ischemic disease. Low-lying cerebellar tonsils. Cerebral vascular calcifications. The calvarium is intact. Large left mastoid and middle ear effusions. Opacified right maxillary sinus with volume loss. Severe mucosal thickening of the sphenoid sinuses. The right mastoid air cells are clear. IMPRESSION: 1. No acute intracranial abnormality identified. 2. Paranasal sinus disease as above with chronic large left mastoid and middle ear effusions. ACT 112: Negative or not required by law. The above report was generated using voice recognition software. It may contain grammatical, syntax or spelling errors. Electronically signed by: Kev Navarro M.D. 09/19/2022 4:14 PM ECG Data Attestation: I personally reviewed and interpreted this ECG as follows: Indication: + weakness Rate (beats per minute): 107 Rhythm: + sinus tachycardia ECG Intervals/blocks: + Left bundle branch block ECG [place]: + Normal ECG ST segments: + Normal ST segments ECG Findings: no PACs or no PVCs Comparison ECG Date: from (12/12/16) Change: no significant change MDM Narrative This patient comes in as described above. I saw him when he arrived is very concerned that his presentation. He did appear somewhat mottled and they were cycling a blood pressure came back at 65 and put him in Trendelenburg established a second IV. With this his mentation improved and he said he was having lower abdominal pain. He has some nausea vomiting earlier but denies any now he had no chest pain or shortness of breath. Dr. Lorenzo did put an ultras ound probe on his abdomen did not see any large aneurysm or free fluid. I did order stat CAT scan of the chest and abdomen as well as multiple blood testing and type and cross. We established a second IV. He was given 2 L IV normal saline bolus due to his hypotension. EKG does not show any findings to suggest acute coronary syndrome. Chest x-ray was unremarkable for acute findings to room A1 and then promptly moved him to the CAT scan. CAT scan shows a large amount of pneumoperitoneum consistent with a perforation of unknown certain etiology. I am concerned that he is hypotensive and perforated. With 2 L of fluid his blood pressure came up into the 110s and he looks quite a bit better he is mentating better. I did give him Zosyn 4.5 g IV and I did discuss the antibiotic choice with our ED pharmacist. I consulted Dr. Duran from surgery as a he will likely need to go to the OR. His white count was normal and his hemoglobin is normal. I also did discuss case with Dr. Jerome as the patient will likely go to the ICU will as well. Dr. Jerome promptly came down and saw the patient an put a central line and an A-line as well and given the patient's hypotension. I also did discuss the case with Dr. Hooks, the on-call anesthesiologist and gave him a heads up that the patient will likely be coming to the OR. He was seen by Dr. Duran and she will be taken to the operating room. His lactic acid came back significant elevated 6.7. With the fluid resuscitation the patient was looking better but still remain critically ill. He had no airway compromise. In regards to his sepsis, he did receive a total of 3 L IV of normal saline in the ER which is greater than 30/kg, additionally due to the hypotension we also started him on a Nor epinephrine IV drip as the pressure was still on the low side, prior to going to the OR. Continuous cardiac monitoring: Orders placed in EMR for continuous cardiac monitoring. Upon my evaluation patient to be in sinus tachycardia with rate 100 Impression & Plan Sepsis, Abdominal pain, Hypotension, Perforated abdominal viscus, Elevated lactic acid level, Elevated troponin Discharge Plan Visit Data Chief Complaint: Syncope ED Provider: Rg Hooper Discharge Problem: Sepsis, Abdominal pain, Hypotension, Perforated abdominal viscus, Elevated lactic acid level, Elevated troponin Forms Stand Alone Forms: My [facility] Prescriptions Prescriptions: No Action aspirin [Adult Low Dose Aspirin] 81 mg tablet,delayed release (DR/EC) 81 mg PO QAM oxycodone-acetaminophen [Percocet] 5-325 mg tablet 1 tab PO Q6H PRN (Reason: pain) Qty: 14 0RF lisinopril 20 mg Tablet 20 mg PO BID meclizine 25 mg Tablet 25 mg PO TID PRN (Reason: Dizziness) amlodipine 10 mg Tablet 10 mg PO DAILY rosuvastatin 5 mg Tablet 5 mg PO DAILY fluticasone propionate 50 mcg/actuation [place],Suspension 2 spray INTRANASAL DAILY Rx Instructions: administer into each nostril Referrals Referrals: Mehdi Suarez MD [Primary Care Provider] - Sepsis Qualifiers: Sepsis type: sepsis due to unspecified organism Sepsis acute organ dysfunction status: with acute organ dysfunction Severe sepsis acute organ dysfunction type: acute renal failure Acute renal failure type: unspecified Abdominal pain Qualifiers: Abdominal location: lower abdomen, unspecified Qualified Code(s): R10.30 - Lower abdominal pain, unspecified Hypotension Qualifiers: Hypotension type: unspecified hypotension type Qualified Code(s): I95.9 - Hypotension, unspecified
--- NOTE | 2022-09-19 15:46 | XRay Report ---
XR chest 1V portable HISTORY: 72 years-old Male weakness acute weakness COMPARISON: 08/26/2016 TECHNIQUE: AP view of the chest FINDINGS: Upper lobe fibrotic changes redemonstrated with superior hilar retraction. Cardiac silhouette is norm al. No pneumothorax, pleural effusion or overt pulmonary edema. Bones appear grossly intact. IMPRESSION: Biapical pleural-parenchymal scarring redemonstrated without acute process. ACT 112: Negative or not required by law. The above report was generated using voice recognition software. It may contain grammatical, syntax o r spelling errors. Electronically signed by: Kev Navarro M.D. 09/19/2022 3:45 PM
[2022-09-19] MEDS ORDERED: OPTIRAY 320 500ml IV ONE (15:58)
[2022-09-19] MEDS ORDERED: PIPERACILLIN/TAZOBACTAM 4.5 GM/120 ML BAG IV ONE (16:00)
[2022-09-19 16:01] LABS: Hematocrit (blood only) 44.2 % (42.0-52.0); Hemoglobin 14.6 g/dl (14.0-18.0); Mean Corpuscular Hemoglobin 31.3 pg (25.0-34.0); Mean Corpuscular Volume 94.8 fL (80.0-100.0); Mean Platelet Volume 10.3 fL (9.4-12.4); Platelet Count 257 K/uL (130-400); RDW Coefficient of Variation 12.3 % (11.5-14.5); RDW Standard Deviation 42.6 fL (36.4-46.3); Red Blood Count 4.66 M/uL (4.70-6.10); White Blood Count 6.18 K/ul (4.8-10.8)
[2022-09-19] MEDS ORDERED: ONDANSETRON INJ 2 MG/ML 2 ML VIAL ONE (16:01)
[2022-09-19] MEDS ORDERED: ONDANSETRON INJ 2 MG/ML 2 ML VIAL IV STA (16:02)
--- NOTE | 2022-09-19 16:13 | CT Scan Report ---
ABDOMEN AND PELVIS CT WITH IV CONTRAST HISTORY: Acute generalized abdominal pain with hypotension hypotensive, abd pain TECHNIQUE: Multiaxial CT images of the abdomen and pelvis were performed following the IV administrat ion of 114 cc of Optiray, A dose lowering technique was utilized adhering to the principles of ALARA . COMPARISON STUDY: CTA chest of same day, CT abdomen pelvis 06/28/2015 FINDINGS: Mild cardiomegaly with coronary artery calcifications. Mild bibasilar atelectasis. Limited study secondary to upper extremity positioning and respiratory motion. Diminutive spleen. Unremarkable adrenal glands, pancreas, gallbladder and liver. The kidneys are with in normal limits. No hydronephrosis. Heterogeneous prostamegaly with a 1.9 cm focus of decreased the left central prostate. Atherosclerosis of the aorta and branch vessels. No aneurysm identified. There is no lymphadenopathy. Patent portal vein. There is a large amount of pneumoperitoneum, as pronounced within the central and upper anterior abdo men. Fluid-filled distended distal esophagus. Distended fluid-filled loops of jejunum measure up to a pproximately 3.5 cm. Colonic diverticulosis. Wall thickening is noted throughout several loops of lar ge and small bowel. Appendectomy. Exact site of bowel perforation is not identified. No drainable flu id collection. Small volume of abdominal pelvic ascites with mesenteric edema. Healed chronic posteri or left-sided rib fractures. No acute fracture. Degenerative changes of the spine, pelvis and hips. IMPRESSION: 1. Large amount of pneumoperitoneum compatible with perforated viscus. Definite site of perforation i s not definitively seen however there is colonic diverticular disease which raises the possibility of colonic perforation. 2. Several loops of small bowel are mildly dilated and fluid-filled and several loops of large and sm all bowel demonstrate wall thickening, likely reactive secondary to the perforated viscus. A low-grad e small bowel obstruction could appear similarly. 3. Small volume of abdominopelvic ascites. 4. Distended fluid-filled distal esophagus. 5. Prostamegaly with chronic bladder outlet obstruction. 6. Additional findings as above. ACT 112: Negative or not required by law. The above report was generated using voice recognition software. It may contain grammatical, syntax o r spelling errors. Electronically signed by: Kev Navarro M.D. 09/19/2022 4:11 PM
--- NOTE | 2022-09-19 16:16 | CT Scan Report ---
CT head/brain wo con CLINICAL HISTORY: 72 years-old Male with syncope. Acute syncope TECHNIQUE: Multiple axial CT images of the head were obtained without contrast. A dose lowering tech nique was utilized adhering to the principles of ALARA. CT DOSE: 1472.59 mGy.cm COMPARISON: 11/22/2014 FINDINGS: No acute intracranial hemorrhage, midline shift, intracranial mass, hydrocephalus, territorial ischem ia or abnormal extra-axial collection. Involutional changes with chronic microvascular ischemic disea se. Low-lying cerebellar tonsils. Cerebral vascular calcifications. The calvarium is intact. Large left mastoid and middle ear effusions. Opacified right maxillary sinu s with volume loss. Severe mucosal thickening of the sphenoid sinuses. The right mastoid air cells ar e clear. IMPRESSION: 1. No acute intracranial abnormality identified. 2. Paranasal sinus disease as above with chronic large left mastoid and middle ear effusions. ACT 112: Negative or not required by law. The above report was generated using voice recognition software. It may contain grammatical, syntax o r spelling errors. Electronically signed by: Kev Navarro M.D. 09/19/2022 4:14 PM
--- NOTE | 2022-09-19 16:22 | CT Scan Report ---
CT angio chest PE protocol HISTORY: 72 years-old Male with PE. Acute hypotension with shortness of breath, chest and abdominal pain TECHNIQUE: Multiple CTA images of the chest were obtained after the intravenous administration of 114 ml Optiray. Coronal and sagittal MIPS were obtained from the axial data set and were submitted for review. All measurements were obtained according to NASCET criteria. A dose lowering technique was u tilized adhering to the principles of ALARA. COMPARISON: CT abdomen and pelvis of same day, chest CT 04/22/2012 FINDINGS: CTA: Mild cardiomegaly. Extensive coronary artery calcifications. Atherosclerosis of the aorta without ane urysm. No pulmonary emboli identified. CT CHEST: No thyroid nodule or lymphadenopathy. Moderate severe emphysema with biapical pleural-parenchymal sca rring. Mild subsegmental bibasilar atelectasis. Bronchial wall thickening as suggestive of pneumonia. Mild tracheobronchial secretions. Large amount of upper abdominal pneumoperitoneum with ascites. Fluid-filled and distended esophagus. Layering debris noted within the gastric lumen. Age-indeterminate compression deformities of the T4, T6 and T7 vertebral bodies without retropulsion which are favored to be chronic. IMPRESSION: 1. Emphysema with bronchitis and mild tracheobronchial secretions. 2. Large amount of upper abdominal pneumoperitoneum with ascites. Findings compatible with perforated viscus. Please refer to the CT abdomen and pelvis study of same day for further discussion. 3. No pulmonary emboli identified. 4. Distended fluid-filled esophagus. ACT 112: Negative or not required by law. The above report was generated using voice recognition software. It may contain grammatical, syntax o r spelling errors. Electronically signed by: Kev Navarro M.D. 09/19/2022 4:19 PM
--- NOTE | 2022-09-19 16:22 | Anesthesiology Consultation ---
Date of Service September 19, 2022 Assessment & Plan (1) Encounter for pre-operative examination: Chart Review Chart Review: Acceptable Risk for Surgery (emergency surgery for abdominal free air) History Height/Weight Weight: 81.647 kg Allergies Allergy/AdvReac Type Severity Reaction Status Date / Time No Known Drug Allergies Allergy Verified 06/16/22 14:44 Medications Home Medications Medication Instructions Recorded Confirmed Last Taken aspirin 81 mg tablet,delayed 81 mg PO QAM 07/09/20 09/19/22 Unknown release (Adult Low Dose Aspirin) amlodipine 10 mg tablet 10 mg PO DAILY 09/19/22 09/19/22 Unknown fluticasone propionate 50 2 spray intranasal DAILY 09/19/22 09/19/22 Unknown mcg/actuation nasal spray,suspension lisinopril 20 mg tablet 20 mg PO BID 09/19/22 09/19/22 Unknown meclizine 25 mg tablet 25 mg PO TID PRN Dizziness 09/19/22 09/19/22 Unknown oxycodone-acetaminophen 5 mg-325 1 tab PO Q6H PRN pain #14 tabs 09/19/22 09/19/22 Unknown mg tablet (Percocet) rosuvastatin 5 mg tablet 5 mg PO DAILY 09/19/22 09/19/22 Unknown Past Medical History Medical History (Updated 09/19/22 @ 16:24 by Jaren Hooks MD) Diverticula of colon Hypercholesteremia Hypertension Syncope Past Family History Family History Other No family history of adverse response to anesthesia No family history of bleeding disorder Past Surgical History Surgical History (Updated 09/19/22 @ 16:23 by Jaren Hooks MD) H/O right heart catheterization Hx of mastoidectomy Social History Smoking Status: Current every day smoker Hx Alcohol Use: No Hx Substance Use: No Physical Exam Vital Signs Last Vital Signs Pulse 97 H 09/19/22 15:44 Testing Laboratory Results 09/19/22 15:35 09/19/22 15:23 POC Glucose 83
[2022-09-19 16:26] LABS: Basophils # (auto) 0.03 K/uL (0-0.2); Basophils % (auto) 0.5 %; Eosinophils # (auto) 0.01 K/uL (0-0.50); Eosinophils % (auto) 0.2 %; Immature Granulocytes # (auto) 0.04 K/uL (0.01-0.20); Immature Granulocytes % (auto) 0.6 %; Lymphocytes # (auto) 1.17 K/uL (1.2-3.4); Lymphocytes % (auto) 18.9 %; Monocytes # (auto) 0.28 K/uL (0.11-0.59); Monocytes % (auto) 4.5 %; Neutrophils # (auto) 4.65 K/uL (1.40-6.50); Neutrophils % (auto) 75.3 %
[2022-09-19 16:29] LABS: INR 1.1 (0.9-1.1); Partial Thromboplastin Ratio 0.9; Partial Thromboplastin Time 24.7 Seconds (21.0-31.0); Prothrombin Time 11.9 Seconds (9.0-12.0)
[2022-09-19 16:31] LABS: Thyroid Stimulating Hormone 6.984 uIu/ml (0.300-4.500)
[2022-09-19] MEDS ORDERED: MIDAZOLAM HCL 1 MG/ML 2ML VIAL ONE ×2 (16:36→18:59)
[2022-09-19] MEDS ORDERED: fentaNYL citrate PF 100 MCG/2 ML VIAL ONE (16:36)
[2022-09-19 16:38] LABS: Troponin I High Sensitivity 177.9 pg/ml (0-20)
[2022-09-19] MEDS ORDERED: ALBUMIN HUMAN 5% 12.5 GM/250 ML VIAL IV ONE (16:41)
[2022-09-19 16:48] LABS: Alanine Aminotransferase 12 U/L (7-52); Albumin Globulin Ratio 1.5 (0.9-2); Albumin Level 3.8 gm/dl (3.4-5.0); Alkaline Phosphatase 77 U/L (34-104); BUN Creatinine Ratio 11.6 (10-20); Bilirubin,Total 0.9 mg/dl (0.2-1.0); Blood Urea Nitrogen 22 mg/dl (6-23); Calcium 9.4 mg/dl (8.6-10.3); Carbon Dioxide 18 mmol/L (21-32); Chloride 105 mmol/L (98-107); Est GFR (African American) 39.4 ml/min; Globulin 2.6 gm/dl (2.5-4.0); Glucose 85 mg/dl (70-99(Fasting)); Total Protein 6.4 gm/dl (6.0-8.3)
[2022-09-19] MEDS ORDERED: SODIUM CHLORIDE 0.9% 1000ML 1,000 ML IV ONE ×5 (16:51→22:54)
--- NOTE | 2022-09-19 16:55 | Surgery Consultation ---
Date of Consultation September 19, 2022 Assessment & Plan (1) Intra-abdominal free air of unknown etiology: Pt presents acutely ill with hypotension, syncope and CT scan showing pneumoperitoneum of unclear etiology. Discussed need for exploratory laparotomy with he and his and daughter - explained possible need for bowel resection or ostomy. Risks of bleeding, infection, worsening pulmonary, cardiac or renal status, injury to other structures, abscess, hernia, need for additional surgery later all discussed. [place] of the situation and his current medical condition reviewed. Expectation for a course of time in the ICU, potentially intubated, reviewed. All questions answered and consent signed. For OR tonight, will continue IVF hydration, continue IV antibiotics. Plan on ng tube, armijo catheter as well as central venous access and arterial line. (2) Hypotension: History of Present Illness Reason for Consultation: free air Requesting Physician: Rg Hooper MD History of Present Illness 72 yr old man with free air. Seen earlier this am for what was thought to be a pulled muscle. Had bent over to pick something up and when twisted, felt a sharp pain in his abdomen- lower pubic area. [place] diaphoretic from the intensity of the pain. Seen in the ER and pain had improved. Thought to be a muscle strain and discharged home. Represented this evening after syncopal episode. Was hypotensive with SBP 65, obtunded/ confused. Recieved IVF resuscitation. CT imaging done and showed intra-abdominal free air. At the time of my visit, he was having an arterial line placed. Central venous access had been obtained. He was mentating and able to communicate. Daughter notes he had a history of a liver tear year ago treated nonoperatively. Does not follow with doctor's much so no other known medical issues. Allergies Allergy/AdvReac Type Severity Reaction Status Date / Time No Known Drug Allergies Allergy Verified 06/16/22 14:44 Home Medications Medication Instructions Recorded Confirmed Type aspirin 81 mg tablet,delayed 81 mg PO QAM 07/09/20 09/19/22 History release (Adult Low Dose Aspirin) amlodipine 10 mg tablet 10 mg PO DAILY 09/19/22 09/19/22 History fluticasone propionate 50 2 spray intranasal DAILY 09/19/22 09/19/22 History mcg/actuation nasal spray,suspension lisinopril 20 mg tablet 20 mg PO BID 09/19/22 09/19/22 History meclizine 25 mg tablet 25 mg PO TID PRN Dizziness 09/19/22 09/19/22 History oxycodone-acetaminophen 5 mg-325 1 tab PO Q6H PRN pain #14 tabs 09/19/22 09/19/22 Rx mg tablet (Percocet) rosuvastatin 5 mg tablet 5 mg PO DAILY 09/19/22 09/19/22 History Patient History Medical History Diverticula of colon Hypercholesteremia Hypertension Syncope Surgical History H/O right heart catheterization Hx of mastoidectomy Family History Other No family history of adverse response to anesthesia No family history of bleeding disorder Social History Smoking Status: Current every day smoker Tobacco Type: Cigarettes packs per day: 0.5; Hx Alcohol Use: No Hx Substance Use: No Preferred Language: [place] Feels Safe at Home: Yes Review of Systems Review of Systems: All systems reviewed & are unremarkable except as noted in HPI & below Ear, Nose, Mouth, Throat: wears hearing aid Physical Exam Constitutional: + acute distress and + ill appearing Eyes: + anicteric sclerae ENMT: Ears: + hearing impairment (hearing aid right ear in place); no external ear abnormality Respiratory: normal respiratory effort, lungs clear to auscultation Cardiovascular: Rate/Rhythm: regular rate and regular rhythm Heart Sounds: no murmur Gastrointestinal (Abdomen): Inspection/Auscultation: + abdomen distended and + hypoactive bowel sounds Percussion/Palpation: + abdomen tender Neurologic: awake; no focal motor deficits Psychiatric: A+Ox3, euthymic affect Results & Data Vital Signs (Past 12 Hours) Vital Signs Pulse 09/19/22 15:44 97 H Laboratory Results 09/19/22 09/19/22 09/19/22 Range/Units 16:39 16:22 16:22 WBC (4.8-10.8) K/ul RBC (4.70-6.10) M/uL Hgb (14.0-18.0) g/dl Hct (42.0-52.0) % MCV (80.0-100.0) fL MCH (25.0-34.0) pg MCHC (32.0-36.0) g/dL RDW Std Deviation (36.4-46.3) fL RDW Coeff of Samantha (11.5-14.5) % Plt Count (130-400) K/uL MPV (9.4-12.4) fL Immature Gran % (Auto) % Neut % (Auto) % Lymph % (Auto) % [place] % (Auto) % Eos % (Auto) % Baso % (Auto) % Neut # (Auto) (1.40-6.50) K/uL Lymph # (Auto) (1.2-3.4) K/uL [place] # (Auto) (0.11-0.59) K/uL Eos # (Auto) (0-0.50) K/uL Baso # (Auto) (0-0.2) K/uL Immature Gran # (Auto) (0.01-0.20) K/uL PT (9.0-12.0) Seconds INR (0.9-1.1) APTT (21.0-31.0) Seconds PTT Ratio Sodium Potassium Chloride (98-107) mmol/L Carbon Dioxide (21-32) mmol/L Anion Gap BUN (6-23) mg/dl Creatinine (0.6-1.4) mg/dl Est Cr Clr Drug Dosing Est GFR ( Amer) ml/min Est GFR (Non-Af Amer) ml/min BUN/Creatinine Ratio (10-20) Glucose (70-99(Fasting)) mg/dl POC Glucose (70-99) mg/dl Lactate 1.1 6.7 H* (0.4-2.0) mmol/L Calcium (8.6-10.3) mg/dl Magnesium Total Bilirubin (0.2-1.0) mg/dl AST ALT (7-52) U/L Alkaline Phosphatase (34-104) U/L Troponin I High Sens (0-20) pg/ml Total Protein (6.0-8.3) gm/dl Albumin (3.4-5.0) gm/dl Globulin (2.5-4.0) gm/dl Albumin/Globulin Ratio (0.9-2) TSH (0.300-4.500) uIu/ml Free T4 Blood Type Pending Antibody Screen Pending Crossmatch See Detail 09/19/22 09/19/22 09/19/22 Range/Units 15:35 15:35 15:35 WBC (4.8-10.8) K/ul RBC (4.70-6.10) M/uL Hgb (14.0-18.0) g/dl Hct (42.0-52.0) % MCV (80.0-100.0) fL MCH (25.0-34.0) pg MCHC (32.0-36.0) g/dL RDW Std Deviation (36.4-46.3) fL RDW Coeff of Samantha (11.5-14.5) % Plt Count (130-400) K/uL MPV (9.4-12.4) fL Immature Gran % (Auto) % Neut % (Auto) % Lymph % (Auto) % [place] % (Auto) % Eos % (Auto) % Baso % (Auto) % Neut # (Auto) (1.40-6.50) K/uL Lymph # (Auto) (1.2-3.4) K/uL [place] # (Auto) (0.11-0.59) K/uL Eos # (Auto) (0-0.50) K/uL Baso # (Auto) (0-0.2) K/uL Immature Gran # (Auto) (0.01-0.20) K/uL PT 11.9 (9.0-12.0) Seconds INR 1.1 (0.9-1.1) APTT 24.7 (21.0-31.0) Seconds PTT Ratio 0.9 Sodium TNP Potassium TNP Chloride 105 (98-107) mmol/L Carbon Dioxide 18 L (21-32) mmol/L Anion Gap TNP BUN 22 (6-23) mg/dl Creatinine 1.90 H (0.6-1.4) mg/dl Est Cr Clr Drug Dosing Not Reportable Est GFR ( Amer) 39.4 ml/min Est GFR (Non-Af Amer) 34.0 ml/min BUN/Creatinine Ratio 11.6 (10-20) Glucose 85 (70-99(Fasting)) mg/dl POC Glucose (70-99) mg/dl Lactate (0.4-2.0) mmol/L Calcium 9.4 (8.6-10.3) mg/dl Magnesium TNP Total Bilirubin 0.9 (0.2-1.0) mg/dl AST TNP ALT 12 (7-52) U/L Alkaline Phosphatase 77 (34-104) U/L Troponin I High Sens 177.9 H* (0-20) pg/ml Total Protein 6.4 (6.0-8.3) gm/dl Albumin 3.8 (3.4-5.0) gm/dl Globulin 2.6 (2.5-4.0) gm/dl Albumin/Globulin Ratio 1.5 (0.9-2) TSH 6.984 H (0.300-4.500) uIu/ml Free T4 Pending Blood Type Antibody Screen Crossmatch 09/19/22 09/19/22 Range/Units 15:35 15:23 WBC 6.18 (4.8-10.8) K/ul RBC 4.66 L (4.70-6.10) M/uL Hgb 14.6 (14.0-18.0) g/dl Hct 44.2 (42.0-52.0) % MCV 94.8 (80.0-100.0) fL MCH 31.3 (25.0-34.0) pg MCHC 33.0 (32.0-36.0) g/dL RDW Std Deviation 42.6 (36.4-46.3) fL RDW Coeff of Samantha 12.3 (11.5-14.5) % Plt Count 257 (130-400) K/uL MPV 10.3 (9.4-12.4) fL Immature Gran % (Auto) 0.6 % Neut % (Auto) 75.3 % Lymph % (Auto) 18.9 % [place] % (Auto) 4.5 % Eos % (Auto) 0.2 % Baso % (Auto) 0.5 % Neut # (Auto) 4.65 (1.40-6.50) K/uL Lymph # (Auto) 1.17 L (1.2-3.4) K/uL [place] # (Auto) 0.28 (0.11-0.59) K/uL Eos # (Auto) 0.01 (0-0.50) K/uL Baso # (Auto) 0.03 (0-0.2) K/uL Immature Gran # (Auto) 0.04 (0.01-0.20) K/uL PT (9.0-12.0) Seconds INR (0.9-1.1) APTT (21.0-31.0) Seconds PTT Ratio Sodium Potassium Chloride (98-107) mmol/L Carbon Dioxide (21-32) mmol/L Anion Gap BUN (6-23) mg/dl Creatinine (0.6-1.4) mg/dl Est Cr Clr Drug Dosing Est GFR ( Amer) ml/min Est GFR (Non-Af Amer) ml/min BUN/Creatinine Ratio (10-20) Glucose (70-99(Fasting)) mg/dl POC Glucose 83 (70-99) mg/dl Lactate (0.4-2.0) mmol/L Calcium (8.6-10.3) mg/dl Magnesium Total Bilirubin (0.2-1.0) mg/dl AST ALT (7-52) U/L Alkaline Phosphatase (34-104) U/L Troponin I High Sens (0-20) pg/ml Total Protein (6.0-8.3) gm/dl Albumin (3.4-5.0) gm/dl Globulin (2.5-4.0) gm/dl Albumin/Globulin Ratio (0.9-2) TSH (0.300-4.500) uIu/ml Free T4 Blood Type Antibody Screen Crossmatch Diagnostic Findings ABDOMEN AND PELVIS CT WITH IV CONTRAST HISTORY: Acute generalized abdominal pain with hypotension hypotensive, abd pain TECHNIQUE: Multiaxial CT images of the abdomen and pelvis were performed following the IV administration of 114 cc of Optiray, A dose lowering technique was utilized adhering to the principles of ALARA. COMPARISON STUDY: CTA chest of same day, CT abdomen pelvis 06/28/2015 FINDINGS: Mild cardiomegaly with coronary artery calcifications. Mild bibasilar atelectasis. Limited study secondary to upper extremity positioning and respiratory motion. Diminutive spleen. Unremarkable adrenal glands, pancreas, gallbladder and liver. The kidneys are within normal limits. No hydronephrosis. Heterogeneous prostamegaly with a 1.9 cm focus of decreased the left central prostate. Atherosclerosis of the aorta and branch vessels. No aneurysm identified. There is no lymphadenopathy. Patent portal vein. There is a large amount of pneumoperitoneum, as pronounced within the central and upper anterior abdomen. Fluid-filled distended distal esophagus. Distended fluid-filled loops of jejunum measure up to approximately 3.5 cm. Colonic diverticulosis. Wall thickening is noted throughout several loops of large and small bowel. Appendectomy. Exact site of bowel perforation is not identified. No drainable fluid collection. Small volume of abdominal pelvic ascites with mesenteric edema. Healed chronic posterior left-sided rib fractures. No acute fracture. Degenerative changes of the spine, pelvis and hips. IMPRESSION: 1. Large amount of pneumoperitoneum compatible with perforated viscus. Definite site of perforation is not definitively seen however there is colonic diverticular disease which raises the possibility of colonic perforation. 2. Several loops of small bowel are mildly dilated and fluid-filled and several loops of large and small bowel demonstrate wall thickening, likely reactive secondary to the perforated viscus. A low-grade small bowel obstruction could appear similarly. 3. Small volume of abdominopelvic ascites. 4. Distended fluid-filled distal esophagus. 5. Prostamegaly with chronic bladder outlet obstruction. 6. Additional findings as above. CT angio chest PE protocol HISTORY: 72 years-old Male with PE. Acute hypotension with shortness of breath, chest and abdominal pain TECHNIQUE: Multiple CTA images of the chest were obtained after the intravenous administration of 114 ml Optiray. Coronal and sagittal MIPS were obtained from the axial data set and were submitted for review. All measurements were obtained according to NASCET criteria. A dose lowering technique was utilized adhering to the principles of ALARA. COMPARISON: CT abdomen and pelvis of same day, chest CT 04/22/2012 FINDINGS: CTA: Mild cardiomegaly. Extensive coronary artery calcifications. Atherosclerosis of the aorta without aneurysm. No pulmonary emboli identified. CT CHEST: No thyroid nodule or lymphadenopathy. Moderate severe emphysema with biapical pleural-parenchymal scarring. Mild subsegmental bibasilar atelectasis. Bronchial wall thickening as suggestive of pneumonia. Mild tracheobronchial secretions. Large amount of upper abdominal pneumoperitoneum with ascites. Fluid-filled and distended esophagus. Layering debris noted within the gastric lumen. Age- indeterminate compression deformities of the T4, T6 and T7 vertebral bodies without retropulsion which are favored to be chronic. IMPRESSION: 1. Emphysema with bronchitis and mild tracheobronchial secretions. 2. Large amount of upper abdominal pneumoperitoneum with ascites. Findings compatible with perforated viscus. Please refer to the CT abdomen and pelvis study of same day for further discussion. 3. No pulmonary emboli identified. 4. Distended fluid-filled esophagus. CT head/brain wo con CLINICAL HISTORY: 72 years-old Male with syncope. Acute syncope TECHNIQUE: Multiple axial CT images of the head were obtained without contrast. A dose lowering technique was utilized adhering to the principles of ALARA. CT DOSE: 1472.59 mGy.cm COMPARISON: 11/22/2014 FINDINGS: No acute intracranial hemorrhage, midline shift, intracranial mass, hydrocephalus, territorial ischemia or abnormal extra-axial collection. Involutional changes with chronic microvascular ischemic disease. Low-lying cerebellar tonsils. Cerebral vascular calcifications. The calvarium is intact. Large left mastoid and middle ear effusions. Opacified right maxillary sinus with volume loss. Severe mucosal thickening of the sphenoid sinuses. The right mastoid air cells are clear. IMPRESSION: 1. No acute intracranial abnormality identified. 2. Paranasal sinus disease as above with chronic large left mastoid and middle ear effusions. XR chest 1V portable HISTORY: 72 years-old Male weakness acute weakness COMPARISON: 08/26/2016 TECHNIQUE: AP view of the chest FINDINGS: Upper lobe fibrotic changes redemonstrated with superior hilar retraction. Cardiac silhouette is normal. No pneumothorax, pleural effusion or overt pulmonary edema. Bones appear grossly intact. IMPRESSION: Biapical pleural-parenchymal scarring redemonstrated without acute process. ACT 112: Negative or not required by law.
[2022-09-19] MEDS ORDERED: NOREPINEPHRINE/D5W 4 MG/250 ML IV ONE (17:00)
[2022-09-19] MEDS ORDERED: Standard Conc 16mcg/mL; 4mg in 250mL IV SCH (17:15)
[2022-09-19] MEDS ORDERED: KETAMINE 50 MG/5 ML SYRINGE ONE (17:16)
--- NOTE | 2022-09-19 17:17 | Procedure Note ---
Procedure Note Date of Service September 19, 2022 Note Procedure date: Noted above Procedure: Radial artery cannulation Pre-procedure Diagnosis: Need for invasive monitoring, hypotension/frequent blood draws Post-procedure Diagnosis: same as above Prior to Procedure: Informed Consent: The risks, benefits, indications, potential complications, and alternatives were explained to the patient and verbal informed consent obtained due to acuity of clinical condition. Attending Staff: Iban Jerome DO Skin Prep: Chlorhexidine Anesthesia: 3 mL 1% lidocaine without epinephrine The identity of the patient was confirmed and a bedside time out was performed. Description of Procedure: After sterile prep and sterile drape utilizing standard sterile technique the superficial skin of the right radial artery was anesthetized. The target artery was identified via dynamic ultrasound guidance and entered with a 20-gauge arrow Angiocath. Pulsatile bright red blood return was noted. Via modified Seldinger technique the self-contained guidewire was advanced and the Angiocath advanced over the guidewire. The guidewire was removed and brisk arterial blood return was noted. The pressure monitor was connected, and the arterial line was secured via commercial securement device. A sterile dressing was then applied. Complications: None Estimated blood loss: Trace Patient tolerated the procedure well. Coding
--- NOTE | 2022-09-19 17:17 | Procedure Note ---
Procedure Note Date of Service September 19, 2022 Note Procedure date: Noted above Procedure: Central venous access Pre-procedure indication: Need for vasoactive medication administration Post-procedure Diagnosis: same as above Prior to Procedure: Informed Consent: The risks, benefits, indications, potential complications, and alternatives were explained to the patient and verbal informed consent obtained due to acuity of patient's condition. Attending Staff: Iban Jerome DO Resident/APC: Not applicable Skin Prep: Chlorhexidine Anesthesia: 4 mL 1% lidocaine without epinephrine The identity of the patient was confirmed and a bedside time out was performed. Description of Procedure: After sterile prep and sterile drape utilizing standard sterile technique the superficial skin of the right subclavian area was anesthetized. The target vessel was identified and entered with an 18-gauge needle. Dark venous blood return was noted. A guidewire was inserted through the needle and into the vessel. The needle was withdrawn and a skin juan jose was made. A tissue dilator was advanced via Seldinger technique and removed. A triple lumen catheter was inserted via Seldinger technique and the guidewire removed. All ports daphnie and flushed easily. A Biopatch was placed, and the c atheter was secured via silk suture. A sterile dressing was then applied. Complications: None Estimated blood loss: Trace Patient tolerated the procedure well. Post procedure chest x-ray was reviewed, no pneumothorax noted Coding CPT Codes Tubes, Drains, and Vasc Access - Tubes, Drains, and Vasc Access: [id number] Insertion Of Non-tunneled Catheter Age 3 Yrs> ([id number]) [facility] [place]) Tubes, Drains, and Vasc Access Procedure 1: Tubes, Drains, and Vasc Access: [id number] Insertion Of Non-tunneled Catheter Age 3 Yrs>
[2022-09-19] MEDS ORDERED: BUPIVACAINE 0.5 % 5 MG/1 ML MPF 30ML VIAL ONE (17:27)
--- NOTE | 2022-09-19 17:31 | Critical Care Consultation ---
Date of Consultation September 19, 2022 Assessment & Plan (1) Hypovolemic shock: Reason Critically Ill: 72-year-old male with intra-abdominal free air of unclear etiology and hypovolemic shock PLAN: Neuro: Hard of hearing, wears hearing aid in right ear Resp: Ongoing tobacco use -Suspect patient likely has baseline COPD CV: Hypovolemic shock -Heading to operating room for exploratory laparotomy Fluids/Renal: Acute kidney injury Lactic acid acidosis -3 L normal saline in emergency department, starting Levophed, also receiving fourth liter of fluid ID: Presumptive perforated viscus -On IV Zosyn GI/Nutrition: To the OR for exploratory laparotomy Heme: Type and screen sent DVT prophylaxis: SCDs Endocrine: ICU hyperglycemia protocol Vascular access: Right subclavian central venous catheter, right arterial line Code Status: Full code Disposition: Emergently to OR with general surgery (2) Intra-abdominal free air of unknown etiology: (3) TANYA (acute kidney injury): (4) Lactic acid acidosis: (5) Tobacco abuse: Supervising Physician Co-Signing Physician Notes I have personally spent 45 minutes of critical care time in the direct management of this patient. This is a life/limb threatening event. This includes time spent evaluating patient, direct bedside care, chart review, placing orders, interpretation of diagnostic studies, discussion with consultants, patient, and/or family members regarding treatment decisions, as well as other required patient management activities. This time is exclusive of all separately billable procedures, and teaching time and separate from and in addition to any other critical care service time. History of Present Illness Reason for Consultation: Intra-abdominal sepsis secondary to perforated viscus Requesting Physician: Rg Hooper History of Present Illness Patient is a 72-year-old male who presented to the emergency department initially for abdominal pain. Initial clinical history was reported consistent with musculoskeletal abdominal muscle strain he was symptomatically treated and discharged. Patient returned for additional evaluation after having a syncopal event at home. He was found to have free air under the diaphragm, was hypotensive and started on broad-spectrum antibiotics and volume resuscitated. In the emergency department I placed a central venous catheter as well as arterial line and the patient was prepped to go to the operating room. I was placing a arterial line in the patient's right hand which is his dominant hand. The surgeon Dr. Duran was discussing risks and benefits to the patient, patient opted to have his sign the consent for treatment, patient reported he did not have any questions and was agreeable proceeding. Allergies Allergy/AdvReac Type Severity Reaction Status Date / Time No Known Drug Allergies Allergy Verified 06/16/22 14:44 Home Medications Medication Instructions Recorded Confirmed Type aspirin 81 mg tablet,delayed 81 mg PO QAM 07/09/20 09/19/22 History release (Adult Low Dose Aspirin) amlodipine 10 mg tablet 10 mg PO DAILY 09/19/22 09/19/22 History fluticasone propionate 50 2 spray intranasal DAILY 09/19/22 09/19/22 History mcg/actuation nasal spray,suspension lisinopril 20 mg tablet 20 mg PO BID 09/19/22 09/19/22 History meclizine 25 mg tablet 25 mg PO TID PRN Dizziness 09/19/22 09/19/22 History oxycodone-acetaminophen 5 mg-325 1 tab PO Q6H PRN pain #14 tabs 09/19/22 09/19/22 Rx mg tablet (Percocet) rosuvastatin 5 mg tablet 5 mg PO DAILY 09/19/22 09/19/22 History Patient History Medical History Diverticula of colon Hypercholesteremia Hypertension Syncope Surgical History H/O right heart catheterization Hx of mastoidectomy Family History Other No family history of adverse response to anesthesia No family history of bleeding disorder Social History Smoking Status: Current every day smoker Tobacco Type: Cigarettes packs per day: 0.5; Hx Alcohol Use: No Hx Substance Use: No Preferred Language: Macedonian Feels Safe at Home: Yes Physical Exam Physical Exam: General: Arousable and oriented. Appears uncomfortable Skin: Cool, dry, Head: Atraumatic Ears, nose, mouth and throat: airway patent Cardiovascular: Decreased peripheral perfusion Respiratory: Mild to moderate tachypnea Gastrointestinal: Tenderness with palpation Musculoskeletal: No deformity Results & Data Results & Data Vital Signs (Past 12 Hours) Vital Signs Pulse 09/19/22 15:44 97 H Critical Care Results & Data Vital Signs (Past 12 Hours) Vital Signs Pulse 09/19/22 15:44 97 H Lab & Micro Results (Past 24 Hours) RBC 4.66 M/uL (4.70-6.10) L 09/19/22 WBC 6.18 K/ul (4.8-10.8) 09/19/22 Hgb 14.6 g/dl (14.0-18.0) 09/19/22 Hct 44.2 % (42.0-52.0) 09/19/22 MCV 94.8 fL (80.0-100.0) 09/19/22 MCH 31.3 pg (25.0-34.0) 09/19/22 MCHC 33.0 g/dL (32.0-36.0) 09/19/22 RDW Standard Deviation 42.6 fL (36.4-46.3) 09/19/22 RDW Coefficient of Variation 12.3 % (11.5-14.5) 09/19/22 Plt Count 257 K/uL (130-400) 09/19/22 MPV 10.3 fL (9.4-12.4) 09/19/22 Neutrophils (%) (Auto) 75.3 % 09/19/22 Lymphocytes (%) (Auto) 18.9 % 09/19/22 Monocytes # (Auto) 0.28 K/uL (0.11-0.59) 09/19/22 Eosinophils # (Auto) 0.01 K/uL (0-0.50) 09/19/22 Immature Granulocyte % (Auto) 0.6 % 09/19/22 Neutrophils # (Auto) 4.65 K/uL (1.40-6.50) 09/19/22 Lymphocytes # (Auto) 1.17 K/uL (1.2-3.4) L 09/19/22 Monocytes # (Auto) 0.28 K/uL (0.11-0.59) 09/19/22 Eosinophils # (Auto) 0.01 K/uL (0-0.50) 09/19/22 Basophils # (Auto) 0.03 K/uL (0-0.2) 09/19/22 Immature Granulocyte # (Auto) 0.04 K/uL (0.01-0.20) 3 Na TNP 09/19/22 K TNP 09/19/22 Cl 105 mmol/L (98-107) 09/19/22 CO2 18 mmol/L (21-32) L 09/19/22 Anion Gap TNP 09/19/22 BUN 22 mg/dl (6-23) 09/19/22 Creatinine 1.90 mg/dl (0.6-1.4) H 09/19/22 Estimated GFR ( Amer) 39.4 ml/min 09/19/22 Estimated GFR (Non-Af Amer) 34.0 ml/min 09/19/22 BUN/Creatinine Ratio 11.6 (10-20) 09/19/22 Glu 85 mg/dl (70-99(Fasting)) 09/19/22 Ca 9.4 mg/dl (8.6-10.3) 09/19/22 Total Bilirubin 0.9 mg/dl (0.2-1.0) 09/19/22 AST TNP 09/19/22 ALT 12 U/L (7-52) 09/19/22 Alkaline Phosphatase 77 U/L (34-104) 09/19/22 TP 6.4 gm/dl (6.0-8.3) 09/19/22 Albumin 3.8 gm/dl (3.4-5.0) 09/19/22 Globulin 2.6 gm/dl (2.5-4.0) 09/19/22 Albumin/Globulin Ratio 1.5 (0.9-2) 09/19/22 Mg TNP 09/19/22 15:35 Calcium Level 9.4 mg/dl (8.6-10.3) 09/19/22 15:35 Prothromb Time International Ratio 1.1 (0.9-1.1) 09/19/22 15:3 5 Diagnostic Findings (Past 24 Hours) Chest X-Ray 09/19/22 15:24 XR chest 1V portable HISTORY: 72 years-old Male weakness acute weakness COMPARISON: 08/26/2016 TECHNIQUE: AP view of the chest FINDINGS: Upper lobe fibrotic changes redemonstrated with superior hilar retraction. Cardiac silhouette is normal. No pneumothorax, pleural effusion or overt pulmonary edema. Bones appear grossly intact. IMPRESSION: Biapical pleural-parenchymal scarring redemonstrated without acute process. ACT 112: Negative or not required by law. The above report was generated using voice recognition software. It may contain grammatical, syntax or spelling errors. Electronically signed by: Kev Navarro M.D. 09/19/2022 3:45 PM Abdomen/Pelvis CT 09/19/22 15:[address] WITH IV CONTRAST HISTORY: Acute generalized abdominal pain with hypotension hypotensive, abd pain TECHNIQUE: Multiaxial CT images of the abdomen and pelvis were performed following the IV administration of 114 cc of Optiray, A dose lowering technique was utilized adhering to the principles of ALARA. COMPARISON STUDY: CTA chest of same day, CT abdomen pelvis 06/28/2015 FINDINGS: Mild cardiomegaly with coronary artery calcifications. Mild bibasilar atelectasis. Limited study secondary to upper extremity positioning and respiratory motion. Diminutive spleen. Unremarkable adrenal glands, pancreas, gallbladder and liver. The kidneys are within normal limits. No hydronephrosis. Heterogeneous prostamegaly with a 1.9 cm focus of decreased the left central prostate. Atherosclerosis of the aorta and branch vessels. No aneurysm identified. There is no lymphadenopathy. Patent portal vein. There is a large amount of pneumoperitoneum, as pronounced within the central an d upper anterior abdomen. Fluid-filled distended distal esophagus. Distended fluid-filled loops of jejunum measure up to approximately 3.5 cm. Colonic diverticulosis. Wall thickening is noted throughout several loops of large and small bowel. Appendectomy. Exact site of bowel perforation is not identified. No drainable fluid collection. Small volume of abdominal pelvic ascites with mesenteric edema. Healed chronic posterior left-sided rib fractures. No acute fracture. Degenerative changes of the spine, pelvis and hips. IMPRESSION: 1. Large amount of pneumoperitoneum compatible with perforated viscus. Definite site of perforation is not definitively seen however there is colonic diverticular disease which raises the possibility of colonic perforation. 2. Several loops of small bowel are mildly dilated and fluid-filled and several loops of large and small bowel demonstrate wall thickening, likely reactive seco ndary to the perforated viscus. A low-grade small bowel obstruction could appear similarly. 3. Small volume of abdominopelvic ascites. 4. Distended fluid-filled distal esophagus. 5. Prostamegaly with chronic bladder outlet obstruction. 6. Additional findings as above. ACT 112: Negative or not required by law. The above report was generated using voice recognition software. It may contain grammatical, syntax or spelling errors. Electronically signed by: Kev Navarro M.D. 09/19/2022 4:11 PM Chest CTA 09/19/22 15:33 CT angio chest PE protocol HISTORY: 72 years-old Male with PE. Acute hypotension with shortness of breath, chest and abdominal pain TECHNIQUE: Multiple CTA images of the chest were obtained after the intravenous administration of 114 ml Optiray. Coronal and sagittal MIPS were obtained from the axial data set and were submitted for review. All measurements were obtained according to NASCET criteria. A dose lowering technique was utilized adhering to the principles of ALARA. COMPARISON: CT abdomen and pelvis of same day, chest CT 04/22/2012 FINDINGS: CTA: Mild cardiomegaly. Extensive coronary artery calcifications. Atherosclerosis of the aorta without aneurysm. No pulmonary emboli identified. CT CHEST: No thyroid nodule or lymphadenopathy. Moderate severe emphysema with biapical pleural-parenchymal scarring. Mild subsegmental bibasilar atelectasis. Bronchial wall thickening as suggestive of pneumonia. Mild tracheobronchial secretions. Large amount of upper abdominal pneumoperitoneum with ascites. Fluid-filled and distended esophagus. Layering debris noted within the gastric lumen. Age- indeterminate compression deformities of the T4, T6 and T7 vertebral bodies without retropulsion which are favored to be chronic. IMPRESSION: 1. Emphysema with bronchitis and mild tracheobronchial secretions. 2. Large amount of upper abdominal pneumoperitoneum with ascites. Findings compatible with perforated viscus. Please refer to the CT abdomen and pelvis study of same day for further discussion. 3. No pulmonary emboli identified. 4. Distended fluid-filled esophagus. ACT 112: Negative or not required by law. The above report was generated using voice recognition software. It may contain grammatical, syntax or spelling errors. Electronically signed by: Kev Navarro M.D. 09/19/2022 4:[address] 09/19/22 15:47 CT head/brain wo con CLINICAL HISTORY: 72 years-old Male with syncope. Acute syncope TECHNIQUE: Multiple axial CT images of the head were obtained without contrast. A dose lowering technique was utilized adhering to the principles of ALARA. CT DOSE: 1472.59 mGy.cm COMPARISON: 11/22/2014 FINDINGS: No acute intracranial hemorrhage, midline shift, intracranial mass, hydrocephalus, territorial ischemia or abnormal extra-axial collection. Involutional changes with chronic microvascular ischemic disease. Low-lying cerebellar tonsils. Cerebral vascular calcifications. The calvarium is intact. Large left mastoid and middle ear effusions. Opacified right maxillary sinus with volume loss. Severe mucosal thickening of the sphenoid sinuses. The right mastoid air cells are clear. IMPRESSION: 1. No acute intracranial abnormality identified. 2. Paranasal sinus disease as above with chronic large left mastoid and middle ear effusions. ACT 112: Negative or not required by law. The above report was generated using voice recognition software. It may contain grammatical, syntax or spelling errors. Electronically signed by: Kev Navarro M.D. 09/19/2022 4:14 PM Coding Level of Care Code 64919 CRITICAL CARE 1ST 30-74M Diagnoses Hypovolemic shock R57.1 Intra-abdominal free air of unknown etiology K66.8 TANYA (acute kidney injury) N17.9 Lactic acid acidosis E87.20 Tobacco abuse Z72.0
[2022-09-19 17:34] LABS: Magnesium 1.6 mg/dl (1.7-2.4); Potassium 3.6 mmol/L (3.5-5.1)
[2022-09-19] MEDS ORDERED: HYDROmorphone INJ 1 MG/ML SYRINGE IV PRN (17:47)
[2022-09-19] MEDS ORDERED: ROCURONIUM BROMIDE 10 MG/ML 5 ML VIAL IV ONE ×5 (17:47→18:10)
[2022-09-19] MEDS ORDERED: ATROPINE SULFATE 0.1 MG/ML 10ML SYR IV PRN (17:47)
[2022-09-19] MEDS ORDERED: ONDANSETRON INJ 2 MG/ML 2 ML VIAL IV PRN (17:47)
[2022-09-19] MEDS ORDERED: PROPOFOL IV EMULSION 10 MG/ML 20 ML VIAL IV ONE (17:47)
[2022-09-19] MEDS ORDERED: SUCCINYLCHOLINE CHLORIDE 20 MG/ML 10 ML VIAL IV ONE (17:47)
[2022-09-19] MEDS ORDERED: LIDOCAINE 2% MPF LOCAL 5 ML VIAL ONE (17:47)
[2022-09-19] MEDS ORDERED: PHENYLEPHRINE 100MCG/ML 5ML SYR ONE (17:48)
[2022-09-19] MEDS ORDERED: ePHEDrine sulfate 50 MG/ML SYR ONE (17:48)
--- NOTE | 2022-09-19 18:38 | XRay Report ---
XR chest 1V portable HISTORY: 72 years-old Male s/p central line status post placement of a right IJ central venous jerrica ter COMPARISON: 09/19/2022 TECHNIQUE: AP view of the chest FINDINGS: Right IJ central venous catheter projects over the right atrium. Emphysema with chronic interstitial coarsening. No postprocedural pneumothorax or lobar airspace consolidation. Bones appear grossly inta ct. IMPRESSION: 1. Status post placement of a right IJ central venous catheter with distal tip overlying the right at rium. 2. Emphysema with chronic interstitial coarsening. 3. Pneumoperitoneum is better appreciated on the comparison CT abdomen and pelvis exam. ACT 112: Negative or not required by law. The above report was generated using voice recognition software. It may contain grammatical, syntax o r spelling errors. Electronically signed by: Kev Navarro M.D. 09/19/2022 6:36 PM
--- NOTE | 2022-09-19 20:01 | Operative Report ---
Post Operative Report Pre & Post Diagnosis Operation Date: 09/19/22 17:00 Pre-Op Diagnosis: Intra-abdominal free air of unknown etiology Post-Op Diagnosis: Perforated Sigmoid Colon I identified the patient and participated in the time-out.: Yes Procedure Operation Date: 09/19/22 17:00 Actual Procedures p Exploratory Laparotomy, Sigmoidectomy, Marleen's procedure, Creation of Ostomy(Not Applicable) - Susy Duran MD Surgeon Susy Duran MD Wink Cutter Operator none Estimated Blood Loss 20 Findings See Below (sigmoid colon perforation with gross contamination of abdomen with stool, corn kernels, cloudy fluid) 2 L of contaminated fluid containing both stool as well as corn kernels throughout the abdomen. There was a large perforation of the distal sigmoid colon with stool and corn extruding through into the abdominal cavity Fluids 2500 cc IVF in OR, 4 L in ER, 500 cc albumin Specimens sigmoid colon Drains 10 round MELISSA drain in pelvis Anesthesia Type General Complications none Disposition Accompanied Patient To Recovery: Yes Indications 72-year-old man who presented with sharp abdominal pain after turning and twisting this morning. He was seen in the emergency room during the day and felt to have a muscle strain. He was discharged home and represented later with a syncopal episode and hypotension. He was noted to be confused. CT scan showed intra-abdominal free air. His systolic blood pressures were in the 60s in the emergency room. He had resuscitation with IV fluid. He underwent placement of central venous access as well as arterial line by the sde. His family was counseled regarding the need for urgent exploratory laparotomy and consent was signed. Description of Procedure The patient received Zosyn and cefoxitin preoperatively. After placement of a Ariza catheter and sequential compression devices, his abdomen was sterilely prepped and draped. He had undergone induction of general endotracheal anesthesia and placement of a second arterial line on the contralateral side prior. His abdomen was opened with a midline incision that was carried through the fascia. The peritoneum was sharply entered and there was a significant egress of cloudy foul-smelling fluid. The abdomen was opened from above the umbilicus to the pubic area. A Bookwalter retractor was placed for exposure. 2 L of cloudy foul-smelling fluid containing free-floating stool and free-floating kernels of corn was suctioned. A portion of this was sent for wound culture. The perforation was freely visible along the antimesenteric side of the sigmoid colon. This measured about 2.5 cm in diameter. There was firm stool and corn extruding from the perforation. Bowel clamps were placed placed proximal and distal. The Bookwalter retractor was placed for exposure. The rectum and sigmoid colon were mobilized along the white line of TWAN DT. A spot was chosen for division of the sigmoid along the proximal rectum. This was divided with a firing of the GABBY 60 blue load stapler. The mesentery to the sigmoid colon was taken between Vicryl ties. A spot was chosen for division along proximal to the perforation along healthy colon. This was divided with a firing of the GABBY stapler and the specimen sent off the field. At this point the abdomen was irrigated with multiple liters of saline until the effluent was clear. Gloves were changed. Two 2-0 Prolene sutures were placed on the edge of the rectum and left long in order to allow for finding it later. The nasogastric tube position was checked. The remaining bowel was irrigated. The abdomen was inspected in all 4 quadrants and no further cloudy fluid was noted. All corn kernels had been removed. A spot was chosen in the left lower quadrant for the ostomy. A circular portion of skin was removed and this was carried down to the fascia. The fascia was opened in a cruciate fashion and the posterior abdominal wall identified and divided. 2 fingers were used to spread this to allow for the ostomy to be brought up. The colon was further mobilized along the white line so that there was no tension on the ostomy at all. The colon was brought up into the ostomy site and secured to the anterior abdominal wall with 2-0 silk stitches. A 10 round MELISSA was brought through a separate stab incision in the right pubic area and placed into the pelvis. This was secured to the skin with a silk stitch. The wound was again irrigated. The bowel was run and no further changes noted. The counts were then performed and were correct. The fascia was closed with 2 running looped #1 PDS sutures. The skin was loosely closed with jacqueline with Betadine soaked Telfa tucked in between the jacqueline. The ostomy was then matured with interrupted 3-0 silk and 3-0 Vicryl sutures. An ostomy appliance was placed. 30 cc of half percent Marcaine were used in the incision for local anesthesia. Sterile dressing was applied. He was taken intubated to the intensive care unit in critical condition. Of note he had required 24 mcg/KG/M IN of norepinephrine to maintain his blood pressure throughout the procedure. I attest to the content of the Intraoperative Record and any orders documented therein. Any exceptions are noted below.
[2022-09-19] MEDS ORDERED: fentaNYL BOLUS from BAG IV PRN (20:03)
[2022-09-19] MEDS ORDERED: MIDAZOLAM BOLUS FROM BAG IV PRN (20:03)
[2022-09-19] MEDS ORDERED: STAT IV Infusion **Titration per Protocol STA (20:03)
[2022-09-19] MEDS ORDERED: ALBUT/IPRATROP 3MG/0.5MG NEB 3 ML VIAL INH PRN (20:05)
[2022-09-19] MEDS ORDERED: MIDAZOLAM HCL 125 MG/250 ML BAG IV SCH (20:15)
[2022-09-19] MEDS ORDERED: PLASMA-LYTE A 1,000 ML IV SCH (20:15)
[2022-09-19] MEDS ORDERED: fentaNYL citrate 2,500 MCG/250 ML BAG IV SCH (20:15)
[2022-09-19 20:19] LABS: iSTAT Arterial Blood Gas HCO3 17 meg/L (19-24); iSTAT Arterial Blood Gas pCO2 60 mmHg (35-46); iSTAT Arterial Blood Gas pH 7.07 (7.35-7.45); iSTAT Arterial Blood Gas pO2 214 mmHg (80-95); iSTAT Carbon Dioxide 19 mmol/L (24-31); iSTAT Hematocrit 29 % (42-52); iSTAT Hemoglobin 9.9 g/dl (14.0-18.0); iSTAT Potassium 3.2 mmol/L (3.3-5.0); iSTAT Sodium 140 mmol/L (135-144)
--- NOTE | 2022-09-19 20:20 | Anesthesiology Progress Note ---
Date of Service September 19, 2022 Anesthesia Post Procedure Vital Signs Vital Signs: Temp Pulse Pulse Resp BP BP Pulse Ox 09/19/22 20:10 33 C L 107 H 13 111/56 L 94 09/19/22 20:00 34.6 C L 109 H 16 133/59 L 95 09/19/22 15:24 88 L 09/19/22 15:35 36.0 C L 119 H 26 H 59/32 L 88 L 09/19/22 15:56 101 H 26 H 121/66 100 09/19/22 15:51 94 H 28 H 96/47 L 98 09/19/22 15:47 97 H 25 H 83/39 L 92 09/19/22 15:40 99 H 28 H 69/42 L 97 09/19/22 15:38 100 H 26 H 76/42 L 96 09/19/22 17:05 112/48 L 09/19/22 17:03 88 35 H 79/50 L 94 09/19/22 17:00 88 30 H 103/46 L 94 09/19/22 16:55 86 35 H 74/54 L 94 09/19/22 16:50 87 33 H 102/44 L 09/19/22 16:45 88 28 H 78/45 L 95 09/19/22 16:40 90 31 H 95/45 L 94 09/19/22 16:35 93 H 34 H 87/45 L 93 09/19/22 16:30 93 H 29 H 88/45 L 95 09/19/22 16:25 94 H 31 H 102/46 L 99 09/19/22 16:20 94 H 28 H 110/47 L 98 09/19/22 16:15 96 H 35 H 113/41 L 98 09/19/22 16:10 96 H 30 H 79/40 L 98 09/19/22 16:06 104 H 23 107/48 L 97 09/19/22 16:02 100 H 29 H 98/46 L 97 09/19/22 15:42 93 H 31 H 104/47 L 09/19/22 15:44 97 H O2 Del Method O2 Flow Rate FiO2 09/19/22 20:10 Mechanical Vent 45 09/19/22 20:00 Mechanical Vent 45 09/19/22 15:24 Room Air 09/19/22 15:35 Room Air 09/19/22 15:56 09/19/22 15:51 Nasal Cannula 4 09/19/22 15:47 Non-rebreather 15 09/19/22 15:40 Non-rebreather 09/19/22 15:38 Non-rebreather 09/19/22 17:05 09/19/22 17:03 Nasal Cannula 4 09/19/22 17:00 Nasal Cannula 4 09/19/22 16:55 Nasal Cannula 4 09/19/22 16:50 09/19/22 16:45 Nasal Cannula 4 09/19/22 16:40 Nasal Cannula 4 09/19/22 16:35 Nasal Cannula 4 09/19/22 16:30 Nasal Cannula 4 09/19/22 16:25 Nasal Cannula 4 09/19/22 16:20 Nasal Cannula 4 09/19/22 16:15 Nasal Cannula 4 09/19/22 16:10 Nasal Cannula 4 09/19/22 16:06 Nasal Cannula 4 09/19/22 16:02 09/19/22 15:42 09/19/22 15:44 Pain Intensity Bilateral Abdomen: Pain Intensity: 10 Transfer of Care Handoff Completed per policy Notes Mental Status: see notes below Nausea / Vomiting: adequately controlled Pain: adequately controlled Airway Patency, RR, SpO2: see Notes below BP & HR: stable & adequate and see Notes below Hydration State: stable & adequate Anesthetic Complications: no major complications apparent Notes: patient taken to icu intubated due to his condition, on norepinephrine drip with relatively stable blood pressure.
[2022-09-19] MEDS ORDERED: FAMOTIDINE 20 MG TAB PO SCH (21:00)
[2022-09-19] MEDS ORDERED: MAX Conc 128mcg/mL; 32mg in 250mL IV SCH (21:15)
[2022-09-19] MEDS ORDERED: PLASMA-LYTE A 1,000 ML IV ONE (21:25)
[2022-09-19] MEDS: VASOPRESSIN 20 UNITS in 0.9 % SODIUM CHLORIDE 100 ML IV SCH (21:26)
[2022-09-19] MEDS ORDERED: CASPOFUNGIN 70 MG in SODIUM CHLORIDE 0.9% 250 ML IV ONE (21:28)
--- NOTE | 2022-09-19 21:31 | History & Physical Report ---
Date of Service September 19, 2022 Assessment & Plan (1) Septic shock: Plan: SIRS plus lactic acidosis Secondary to intra-abdominal sepsis perforated bowel status post surgery Hypoxemic, hypercapnic respiratory failure Troponin elevation secondary to illness hx nonocclusive CAD, has not had Cardiology follow-up since 2015 cardiac catheterization chronic LBBB prediabetes as per records past alcohol abuse ongoing tobacco abuse ICU Management of septic shock and respiratory failure as per speeder hand Hold home BP meds for now given hypotension. Trend troponin 2D echo as already ordered by ICU service for troponin elevation and hypotension Checking hemoglobin A1c nicotine patch as needed DVT prophylaxis. Postop SCDs as ordered GI prophylaxis.. Famotidine as ordered Full code Text document was generated using [employer] voice recognition software. It may contain grammatical or spelling errors. Kindly contact undersigned for clarification of any documentation item in question. Admission and Anticipated Discharge Date Admission Date: September 19, 2022 History of Present Illness Chief Complaint: Abdominal pain Primary Care Provider: Mehdi Suarez MD History obtained from records. Unable to obtain history from patient secondary to intubated state. Medical history significant for nonocclusive CAD, chronic LBBB, hypertension, prediabetes as per records, past alcohol abuse, ongoing tobacco abuse. Last confinement 2015 under General Surgery service for acute appendicitis status post laparoscopic appendectomy. Patient experience sharp twisting lower abdominal pain this morning attributed t o pulled muscle. Patient consulted ER but subsequently sent home. Patient later reported to have syncopal event at home. Patient noted to be confused. SBP 60s upon EMS arrival. O2 sats 80s upon arrival at the ER. Perforated viscus and pneumoperitoneum noted on CT. IV Cefoxitin and Zosyn administered at the ER. Patient underwent emergent ex lap, sigmoidectomy, Marleen's procedure and ostomy creation for perforated sigmoid colon. SBP noted 70s postop. Patient transferred to ICU on mechanical ventilation. Hospital service requested to admit patient by surgeon due to multiple medical issues. Medical History as above Surgical History : Bowel surgery, appendectomy, left ear surgery Family History : Lung cancer, heart disease, stroke Personal/Social history : Half pack daily, past alcohol abuse as per records, retired from construction work Allergies Allergy/AdvReac Type Severity Reaction Status Date / Time No Known Drug Allergies Allergy Unknown Verified 09/19/22 22:57 Home Medications Medication Instructions Recorded Confirmed Type aspirin 81 mg tablet,delayed 81 mg PO QAM 07/09/20 09/19/22 History release (Adult Low Dose Aspirin) amlodipine 10 mg tablet 10 mg PO DAILY 09/19/22 09/19/22 History fluticasone propionate 50 2 spray intranasal DAILY 09/19/22 09/19/22 History mcg/actuation nasal spray,suspension lisinopril 20 mg tablet 20 mg PO BID 09/19/22 09/19/22 History meclizine 25 mg tablet 25 mg PO TID PRN Dizziness 09/19/22 09/19/22 History oxycodone-acetaminophen 5 mg-325 1 tab PO Q6H PRN pain #14 tabs 09/19/22 09/19/22 Rx mg tablet (Percocet) rosuvastatin 5 mg tablet 5 mg PO DAILY 09/19/22 09/19/22 History Past Med/Surg History Medical History Diverticula of colon Hypercholesteremia Hypertension Syncope Surgical History H/O right heart catheterization Hx of mastoidectomy Family History Other No family history of adverse response to anesthesia No family history of bleeding disorder Social History Smoking Status: Current every day smoker Tobacco Type: Cigarettes packs per day: 0.5; Cigarettes Per Day: 1.5 ppd; Hx Alcohol Use: No Hx Substance Use: No Preferred Language: [place] Communication Ability: Effective Clinical Technician Required: No Beliefs That Will Affect Care: None Current Living Situation: Spouse and Family Current Living Situation Comment: Pt lives at home with , daughter and abdelrahman lee Other Information That Helps Us Care for You: No Feels Safe at Home: Yes Safety Concerns: Feels Safe At This Time Assistive Devices: Hearing Aid - Right Review of Systems Review of Systems: Could not be reliably obtained secondary to intubated state Physical Exam Physical Exam: GENERAL: Sedated, intubated, no respiratory distress SKIN: Pallor, cool HEENT: Pale palpebral conjunctivae, no ptosis, dry buccal mucosa, ET in place NECK : Supple, no tenderness CHEST : Decreased breath sounds, patient expiratory wheezes, no tenderness HEART : RRR, no obvious murmurs ABDOMEN: Some distention, dressing in place EXTREMITIES : Minimal LE swelling, no LE tenderness, no other conspicuous deformities noted NEUROLOGIC : Sedated, no facial asymmetry, gait and stance not assessed Results & Data Results & Data Vital Signs (Past 12 Hours) Vital Signs Temp Pulse Pulse Resp BP BP Pulse Ox 09/19/22 20:04 108 H 16 97 09/19/22 20:52 34.4 C L 99 H 16 98/63 L 93 09/19/22 20:10 33 C L 107 H 13 111/56 L 94 09/19/22 20:00 34.6 C L 109 H 16 133/59 L 95 09/19/22 15:24 88 L 09/19/22 15:35 36.0 C L 119 H 26 H 59/32 L 88 L 09/19/22 15:56 101 H 26 H 121/66 100 09/19/22 15:51 94 H 28 H 96/47 L 98 09/19/22 15:47 97 H 25 H 83/39 L 92 09/19/22 15:40 99 H 28 H 69/42 L 97 09/19/22 15:38 100 H 26 H 76/42 L 96 09/19/22 17:05 112/48 L 09/19/22 17:03 88 35 H 79/50 L 94 09/19/22 17:00 88 30 H 103/46 L 94 09/19/22 16:55 86 35 H 74/54 L 94 09/19/22 16:50 87 33 H 102/44 L 09/19/22 16:45 88 28 H 78/45 L 95 09/19/22 16:40 90 31 H 95/45 L 94 09/19/22 16:35 93 H 34 H 87/45 L 93 09/19/22 16:30 93 H 29 H 88/45 L 95 09/19/22 16:25 94 H 31 H 102/46 L 99 09/19/22 16:20 94 H 28 H 110/47 L 98 09/19/22 16:15 96 H 35 H 113/41 L 98 09/19/22 16:10 96 H 30 H 79/40 L 98 09/19/22 16:06 104 H 23 107/48 L 97 09/19/22 16:02 100 H 29 H 98/46 L 97 09/19/22 15:42 93 H 31 H 104/47 L 09/19/22 15:44 97 H O2 Del Method O2 Flow Rate FiO2 09/19/22 20:04 45 09/19/22 20:52 Mechanical Vent 45 09/19/22 20:10 Mechanical Vent 45 09/19/22 20:00 Mechanical Vent 45 09/19/22 15:24 Room Air 09/19/22 15:35 Room Air 09/19/22 15:56 09/19/22 15:51 Nasal Cannula 4 09/19/22 15:47 Non-rebreather 15 09/19/22 15:40 Non-rebreather 09/19/22 15:38 Non-rebreather 09/19/22 17:05 09/19/22 17:03 Nasal Cannula 4 09/19/22 17:00 Nasal Cannula 4 09/19/22 16:55 Nasal Cannula 4 09/19/22 16:50 09/19/22 16:45 Nasal Cannula 4 09/19/22 16:40 Nasal Cannula 4 09/19/22 16:35 Nasal Cannula 4 09/19/22 16:30 Nasal Cannula 4 09/19/22 16:25 Nasal Cannula 4 09/19/22 16:20 Nasal Cannula 4 09/19/22 16:15 Nasal Cannula 4 09/19/22 16:10 Nasal Cannula 4 09/19/22 16:06 Nasal Cannula 4 09/19/22 16:02 09/19/22 15:42 09/19/22 15:44 Laboratory Results Laboratory Results WBC 6.18 K/ul (4.8-10.8) 09/19/22 15:35 RBC 4.66 M/uL (4.70-6.10) L 09/19/22 15:35 Hgb 14.6 g/dl (14.0-18.0) 09/19/22 15:35 POC Hgb 9.9 g/dl (14.0-18.0) L 09/19/22 17:03 Hct 44.2 % (42.0-52.0) 09/19/22 15:35 POC Hct 29 % (42-52) L 09/19/22 17:03 MCV 94.8 fL (80.0-100.0) 09/19/22 15:35 MCH 31.3 pg (25.0-34.0) 09/19/22 15:35 MCHC 33.0 g/dL (32.0-36.0) 09/19/22 15:35 RDW Std Deviation 42.6 fL (36.4-46.3) 09/19/22 15:35 RDW Coeff of Samantha 12.3 % (11.5-14.5) 09/19/22 15:35 Plt Count 257 K/uL (130-400) 09/19/22 15:35 MPV 10.3 fL (9.4-12.4) 09/19/22 15:35 Immature Gran % (Auto) 0.6 % 09/19/22 15:35 Neut % (Auto) 75.3 % 09/19/22 15:35 Lymph % (Auto) 18.9 % 09/19/22 15:35 Menard % (Auto) 4.5 % 09/19/22 15:35 Eos % (Auto) 0.2 % 09/19/22 15:35 Baso % (Auto) 0.5 % 09/19/22 15:35 Neut # (Auto) 4.65 K/uL (1.40-6.50) 09/19/22 15:35 Lymph # (Auto) 1.17 K/uL (1.2-3.4) L 09/19/22 15:35 Menard # (Auto) 0.28 K/uL (0.11-0.59) 09/19/22 15:35 Eos # (Auto) 0.01 K/uL (0-0.50) 09/19/22 15:35 Baso # (Auto) 0.03 K/uL (0-0.2) 09/19/22 15:35 Immature Gran # (Auto) 0.04 K/uL (0.01-0.20) 09/19/22 15:35 PT 11.9 Seconds (9.0-12.0) 09/19/22 15:35 INR 1.1 (0.9-1.1) 09/19/22 15:35 APTT 24.7 Seconds (21.0-31.0) 09/19/22 15:35 PTT Ratio 0.9 09/19/22 15:35 POC pH 7.07 (7.35-7.45) L* 09/19/22 17:03 POC pCO2 60 mmHg (35-46) H 09/19/22 17:03 POC pO2 214 mmHg (80-95) H 09/19/22 17:03 POC HCO3 17 saad/L (19-24) L 09/19/22 17:03 POC Total CO2 19 mmol/L (24-31) L 09/19/22 17:03 POC Base Excess -13.0 saad/L (-9-1.8) L 09/19/22 17:03 POC ABG O2 Sat 99.0 % (90-95) H 09/19/22 17:03 POC Sodium 140 mmol/L (135-144) 09/19/22 17:03 Sodium 138 mmol/L (136-145) 09/19/22 17:02 POC Potassium 3.2 mmol/L (3.3-5.0) L 09/19/22 17:03 Potassium 3.6 mmol/L (3.5-5.1) 09/19/22 17:02 Chloride 105 mmol/L (98-107) 09/19/22 15:35 Carbon Dioxide 18 mmol/L (21-32) L 09/19/22 15:35 Anion Gap TNP 09/19/22 15:35 BUN 22 mg/dl (6-23) 09/19/22 15:35 Creatinine 1.90 mg/dl (0.6-1.4) H 09/19/22 15:35 Est Cr Clr Drug Dosing Not Reportable 09/19/22 15:35 Est GFR ( Amer) 39.4 ml/min 09/19/22 15:35 Est GFR (Non-Af Amer) 34.0 ml/min 09/19/22 15:35 BUN/Creatinine Ratio 11.6 (10-20) 09/19/22 15:35 Glucose 85 mg/dl (70-99(Fasting)) 09/19/22 15:35 POC Glucose 83 mg/dl (70-99) 09/19/22 15:23 Lactate 1.1 mmol/L (0.4-2.0) 09/19/22 16:39 Calcium 9.4 mg/dl (8.6-10.3) 09/19/22 15:35 Magnesium 1.6 mg/dl (1.7-2.4) L 09/19/22 17:02 Total Bilirubin 0.9 mg/dl (0.2-1.0) 09/19/22 15:35 AST 21 U/L (13-39) 09/19/22 17:02 ALT 12 U/L (7-52) 09/19/22 15:35 Alkaline Phosphatase 77 U/L (34-104) 09/19/22 15:35 Troponin I High Sens 177.9 pg/ml (0-20) H* 09/19/22 15:35 Total Protein 6.4 gm/dl (6.0-8.3) 09/19/22 15:35 Albumin 3.8 gm/dl (3.4-5.0) 09/19/22 15:35 Globulin 2.6 gm/dl (2.5-4.0) 09/19/22 15:35 Albumin/Globulin Ratio 1.5 (0.9-2) 09/19/22 15:35 TSH 6.984 uIu/ml (0.300-4.500) H 09/19/22 15:35 Free T4 1.00 ng/dl (0.61-1.60) 09/19/22 15:35 Blood Type A Positive 09/19/22 16:22 Blood Type Recheck A Positive 09/19/22 17:02 Antibody Screen NEGATIVE 09/19/22 16:22 Crossmatch See Detail 09/19/22 16:22 Impressions Abdomen/Pelvis CT 09/19/22 15:[address] WITH IV CONTRAST HISTORY: Acute generalized abdominal pain with hypotension hypotensive, abd pain TECHNIQUE: Multiaxial CT images of the abdomen and pelvis were performed following the IV administration of 114 cc of Optiray, A dose lowering technique was utilized adhering to the principles of ALARA. COMPARISON STUDY: CTA chest of same day, CT abdomen pelvis 06/28/2015 FINDINGS: Mild cardiomegaly with coronary artery calcifications. Mild bibasilar atelectasis. Limited study secondary to upper extremity positioning and respiratory motion. Diminutive spleen. Unremarkable adrenal glands, pancreas, gallbladder and liver. The kidneys are within normal limits. No hydronephrosis. Heterogeneous prostamegaly with a 1.9 cm focus of decreased the left central prostate. Atherosclerosis of the aorta and branch vessels. No aneurysm identified. There is no lymphadenopathy. Patent portal vein. There is a large amount of pneumoperitoneum, as pronounced within the central and upper anterior abdomen. Fluid-filled distended distal esophagus. Distended fluid-filled loops of jejunum measure up to approximately 3.5 cm. Colonic diverticulosis. Wall thickening is noted throughout several loops of large and small bowel. Appendectomy. Exact site of bowel perforation is not identified. No drainable fluid collection. Small volume of abdominal pelvic ascites with mesenteric edema. Healed chronic posterior left-sided rib fractures. No acute fracture. Degenerative changes of the spine, pelvis and hips. IMPRESSION: 1. Large amount of pneumoperitoneum compatible with perforated viscus. Definite site of perforation is not definitively seen however there is colonic diverticular disease which raises the possibility of colonic perforation. 2. Several loops of small bowel are mildly dilated and fluid-filled and several loops of large and small bowel demonstrate wall thickening, likely reactive secondary to the perforated viscus. A low-grade small bowel obstruction could appear similarly. 3. Small volume of abdominopelvic ascites. 4. Distended fluid-filled distal esophagus. 5. Prostamegaly with chronic bladder outlet obstruction. 6. Additional findings as above. ACT 112: Negative or not required by law. The above report was generated using voice recognition software. It may contain grammatical, syntax or spelling errors. Electronically signed by: Kev Navarro M.D. 09/19/2022 4:11 PM Chest CTA 09/19/22 15:33 CT angio chest PE protocol HISTORY: 72 years-old Male with PE. Acute hypotension with shortness of breath, chest and abdominal pain TECHNIQUE: Multiple CTA images of the chest were obtained after the intravenous administration of 114 ml Optiray. Coronal and sagittal MIPS were obtained from the axial data set and were submitted for review. All measurements were obtained according to NASCET criteria. A dose lowering technique was utilized adhering to the principles of ALARA. COMPARISON: CT abdomen and pelvis of same day, chest CT 04/22/2012 FINDINGS: CTA: Mild cardiomegaly. Extensive coronary artery calcifications. Atherosclerosis of the aorta without aneurysm. No pulmonary emboli identified. CT CHEST: No thyroid nodule or lymphadenopathy. Moderate severe emphysema with biapical pleural-parenchymal scarring. Mild subsegmental bibasilar atelectasis. Bronchial wall thickening as suggestive of pneumonia. Mild tracheobronchial secretions. Large amount of upper abdominal pneumoperitoneum with ascites. Fluid-filled and distended esophagus. Layering debris noted within the gastric lumen. Age- indeterminate compression deformities of the T4, T6 and T7 vertebral bodies without retropulsion which are favored to be chronic. IMPRESSION: 1. Emphysema with bronchitis and mild tracheobronchial secretions. 2. Large amount of upper abdominal pneumoperitoneum with ascites. Findings compatible with perforated viscus. Please refer to the CT abdomen and pelvis study of same day for further discussion. 3. No pulmonary emboli identified. 4. Distended fluid-filled esophagus. ACT 112: Negative or not required by law. The above report was generated using voice recognition software. It may contain grammatical, syntax or spelling errors. Electronically signed by: Kev Navarro M.D. 09/19/2022 4:[address] 09/19/22 15:47 CT head/brain wo con CLINICAL HISTORY: 72 years-old Male with syncope. Acute syncope TECHNIQUE: Multiple axial CT images of the head were obtained without contrast. A dose lowering technique was utilized adhering to the principles of ALARA. CT DOSE: 1472.59 mGy.cm COMPARISON: 11/22/2014 FINDINGS: No acute intracranial hemorrhage, midline shift, intracranial mass, hydrocephalus, territorial ischemia or abnormal extra-axial collection. Involutional changes with chronic microvascular ischemic disease. Low-lying cerebellar tonsils. Cerebral vascular calcifications. The calvarium is intact. Large left mastoid and middle ear effusions. Opacified right maxillary sinus with volume loss. Severe mucosal thickening of the sphenoid sinuses. The right mastoid air cells are clear. IMPRESSION: 1. No acute intracranial abnormality identified. 2. Paranasal sinus disease as above with chronic large left mastoid and middle ear effusions. ACT 112: Negative or not required by law. The above report was generated using voice recognition software. It may contain grammatical, syntax or spelling errors. Electronically signed by: Kev Navarro M.D. 09/19/2022 4:14 PM Chest X-Ray 09/19/22 16:36 XR chest 1V portable HISTORY: 72 years-old Male s/p central line status post placement of a right IJ central venous catheter COMPARISON: 09/19/2022 TECHNIQUE: AP view of the chest FINDINGS: Right IJ central venous catheter projects over the right atrium. Emphysema with chronic interstitial coarsening. No postprocedural pneumothorax or lobar airspace consolidation. Bones appear grossly intact. IMPRESSION: 1. Status post placement of a right IJ central venous catheter with distal tip overlying the right atrium. 2. Emphysema with chronic interstitial coarsening. 3. Pneumoperitoneum is better appreciated on the comparison CT abdomen and pelvis exam. ACT 112: Negative or not required by law. The above report was generated using voice recognition software. It may contain grammatical, syntax or spelling errors. Electronically signed by: Kev Navarro M.D. 09/19/2022 6:36 PM Diagnostic Findings EKG as per my interpretation :Rate 110, sinus tachycardia, normal axis, LBBB Code Status & VTE Plan VTE Prophylaxis Plan VTE Prophylaxis will be ordered: Yes
[2022-09-19] MEDS: PIPERACILLIN/TAZOBACTAM 4.5 GM in DEXTROSE 5% 100 ML IV SCH (21:51)
[2022-09-19 21:59] LABS: Albumin Globulin Ratio 1.9 (0.9-2); Albumin Level 2.8 gm/dl (3.4-5.0); BUN Creatinine Ratio 14.4 (10-20); Bilirubin,Total 0.5 mg/dl (0.2-1.0); Calcium 8.1 mg/dl (8.6-10.3); Creatinine Clr Calc Pharmacy 38.2 ml/min; Est GFR (African American) 51.2 ml/min; Est GFR (Non-African American) 44.1 ml/min; Globulin 1.5 gm/dl (2.5-4.0); Magnesium 1.5 mg/dl (1.7-2.4); Potassium 3.5 mmol/L (3.5-5.1); Total Protein 4.3 gm/dl (6.0-8.3)
[2022-09-19 22:06] LABS: BUN Creatinine Ratio 14.5 (10-20); Calcium 7.9 mg/dl (8.6-10.3); Creatinine Clr Calc Pharmacy 38.5 ml/min; Est GFR (African American) 51.6 ml/min; Est GFR (Non-African American) 44.5 ml/min; Potassium 3.5 mmol/L (3.5-5.1)
[2022-09-19 22:14] LABS: Basophils # (auto) 0.01 K/uL (0-0.2); Basophils % (auto) 0.4 %; Hematocrit (blood only) 35.5 % (42.0-52.0); Lymphocytes # (auto) 0.53 K/uL (1.2-3.4); Mean Corpuscular Hemoglobin 31.8 pg (25.0-34.0); Mean Corpuscular Hgb Conc 33.8 g/dL (32.0-36.0); Mean Corpuscular Volume 94.2 fL (80.0-100.0); Mean Platelet Volume 10.4 fL (9.4-12.4); Monocytes % (auto) 3.8 %; Neutrophils # (auto) 2.01 K/uL (1.40-6.50); Neutrophils % (auto) 75.8 %; Platelet Count 198 K/uL (130-400); RDW Coefficient of Variation 12.3 % (11.5-14.5); RDW Standard Deviation 42.5 fL (36.4-46.3); Red Blood Count 3.77 M/uL (4.70-6.10); White Blood Count 2.65 K/ul (4.8-10.8)
[2022-09-19 22:22] LABS: Dohle Bodies 1+; Toxic Vacuolation 1+
[2022-09-19 22:25] LABS: Troponin I High Sensitivity 236.6 pg/ml (0-20)
[2022-09-19] MEDS: MAGNESIUM SULFATE / D5W 1 GM/100 ML BAG IV SCH (22:29)
[2022-09-19] MEDS: POTASSIUM CHLORIDE / WTR 20 MEQ/100 ML PLCT IV SCH (22:29)
[2022-09-19] MEDS ORDERED: FAMOTIDINE 20 MG in SYRINGE 3 ML IV SCH (23:00)
[2022-09-19] MEDS ORDERED: SODIUM BICARB 8.4% INJ 50 MEQ/50 ML SYR IV STA (23:15)
[2022-09-19 23:26] LABS: iSTAT Art Bld Gas pCO2 Correct 49 mmHg (35-46); iSTAT Art Bld Gas pH Corrected 7.124 (7.35-7.45); iSTAT Arterial Blood Gas HCO3 17 meg/L (19-24); iSTAT Arterial Blood Gas pCO2 53 mmHg (35-46); iSTAT Arterial Blood Gas pO2 83 mmHg (80-95); iSTAT Arterial Blood Gas pO2 C 73; iSTAT Carbon Dioxide 18 mmol/L (24-31); iSTAT FiO2 50 %; iSTAT Hematocrit 30 % (42-52); iSTAT Hemoglobin 10.2 g/dl (14.0-18.0); iSTAT Potassium 3.5 mmol/L (3.3-5.0); iSTAT Site Art Line; iSTAT Sodium 138 mmol/L (135-144)
[2022-09-19] MEDS ORDERED: SODIUM BICARBONATE 8.4% 100 MEQ in WATER, STERILE 1,000 ML IV SCH (23:30)
[2022-09-19] MEDS: HYDROCORTISONE SOD 50 MG in SYRINGE 0 ML IV SCH (23:46)
[2022-09-20] MEDS: POTASSIUM CHLORIDE / WTR 20 MEQ/100 ML PLCT IV SCH (00:42)
[2022-09-20] MEDS: MAGNESIUM SULFATE / D5W 1 GM/100 ML BAG IV SCH ×2 (00:43→03:06)
[2022-09-20] MEDS ORDERED: PLASMA-LYTE A 500 ML IV ONE (01:05)
[2022-09-20] MEDS ORDERED: STAT IV Infusion **Titration per Protocol STA (01:07)
[2022-09-20] MEDS ORDERED: ALBUMIN 25% 25 GM/100 ML VIAL IV ONE (01:30)
[2022-09-20] MEDS: EPINEPHrine/NSS 4 MG/254 ML BAG IV SCH ×2 (01:34→05:16)
[2022-09-20] MEDS: ICU Protocol for HYPERglycemia SCH ×2 (01:34→07:55)
[2022-09-20 01:57] LABS: Appearance Urine Cloudy (Clear); Bacteria Urine Automated Negative (Negative); Bilirubin Urine Negative (Negative); Blood Urine 3+ (Negative); Color Urine Dark Yellow; Epithelial Cell Urine Auto 20-30 /lpf (0-5); Glucose Urine UA Negative (Negative); Ketones Urine Trace (Negative); Leukocyte Esterase Urine Trace (Negative); Nitrite Urine Negative (Negative); Protein Urine 1+ (Negative); RBC Urine Automated 0-4 /hpf (0-4); Specific Gravity Urine 1.043 (1.000-1.030); Urobilinogen Urine Negative (Negative)
[2022-09-20] MEDS: VASOPRESSIN 20 UNITS in 0.9 % SODIUM CHLORIDE 100 ML IV SCH (02:10)
[2022-09-20] MEDS ORDERED: SODIUM CHLORIDE 0.9% 1000ML 1,000 ML IV ONE (02:24)
[2022-09-20] MEDS ORDERED: SODIUM BICARB 8.4% INJ 50 MEQ/50 ML SYR IV STA ×2 (02:29→02:30)
[2022-09-20 02:30] LABS: Influenza A virus by PCR Negative (Neg); Influenza B virus by PCR Negative (Neg); RSV by PCR Negative (Neg); SARS CoV2 RNA(COVID-19) Ceph NEGATIVE (Negative)
[2022-09-20 02:41] LABS: iSTAT Art Bld Gas pCO2 Correct 52 mmHg (35-46); iSTAT Art Bld Gas pH Corrected 7.185 (7.35-7.45); iSTAT Arterial Blood Gas HCO3 20 meg/L (19-24); iSTAT Arterial Blood Gas pCO2 54 mmHg (35-46); iSTAT Arterial Blood Gas pH 7.17 (7.35-7.45); iSTAT Arterial Blood Gas pO2 338 mmHg (80-95); iSTAT Arterial Blood Gas pO2 C 334; iSTAT Carbon Dioxide 22 mmol/L (24-31); iSTAT Hematocrit 30 % (42-52); iSTAT Hemoglobin 10.2 g/dl (14.0-18.0); iSTAT Potassium 4.3 mmol/L (3.3-5.0); iSTAT Site Art Line; iSTAT Sodium 135 mmol/L (135-144)
--- NOTE | 2022-09-20 02:47 | Surgery Progress Note ---
Date of Service September 20, 2022 Assessment & Plan (1) Septic shock: Plan: Notifed by aids counselor that Calin is not doing well. On three pressors, signs of end organ ischemia (decreased urine output, ostomy which was pink and viable now dusky, increased abdominal distention). Discussed with daughter Coral that he is unlikely to survive. Her and family are going to come in to say goodbye. Admission and Anticipated Discharge Date Admission Date: September 19, 2022 Results & Data Vital Signs (Past 12 Hours) Vital Signs Temp Pulse Pulse Resp BP BP Pulse Ox 09/20/22 01:30 95/57 L 09/20/22 01:30 36.7 C 96 H 22 09/20/22 01:19 36.6 C 97 H 22 92 09/20/22 01:19 80/58 L 09/20/22 01:15 36.6 C 100 H 22 90 09/20/22 01:15 113/61 09/20/22 01:02 36.4 C L 95 H 22 93 09/20/22 01:02 102/54 L 09/20/22 01:00 36.4 C L 94 H 22 91 09/20/22 01:00 105/55 L 09/20/22 00:45 36.2 C L 95 H 22 93 09/20/22 00:45 105/54 L 09/20/22 00:30 106/54 L 09/20/22 00:30 36.0 C L 95 H 22 93 09/20/22 00:00 35.7 C L 96 H 22 94 09/20/22 00:00 97/58 L 09/19/22 23:53 92/53 L 09/19/22 23:53 35.6 C L 96 H 22 93 09/19/22 23:27 111/55 L 09/19/22 23:27 35.3 C L 96 H 22 96 09/19/22 23:23 35.2 C L 94 H 22 95 09/19/22 23:23 99/54 L 09/19/22 23:04 35.1 C L 94 H 16 94 09/19/22 23:04 114/52 L 09/19/22 23:00 35.0 C L 94 H 16 95 09/19/22 23:00 114/51 L 09/19/22 22:00 34.8 C L 97 H 16 95 09/19/22 22:00 108/54 L 09/19/22 21:45 73/55 L 09/19/22 21:45 34.6 C L 93 H 16 92 09/19/22 21:15 115/56 L 09/19/22 21:15 34.5 C L 97 H 16 95 09/19/22 20:45 98/63 L 09/19/22 20:45 34.3 C L 99 H 16 93 09/19/22 23:03 94 H 16 95 09/19/22 20:04 108 H 16 97 09/19/22 20:52 34.4 C L 99 H 16 98/63 L 93 09/19/22 20:10 33 C L 107 H 13 111/56 L 94 09/19/22 20:00 34.6 C L 109 H 16 133/59 L 95 09/19/22 15:24 88 L 09/19/22 15:35 36.0 C L 119 H 26 H 59/32 L 88 L 09/19/22 15:56 101 H 26 H 121/66 100 09/19/22 15:51 94 H 28 H 96/47 L 98 09/19/22 15:47 97 H 25 H 83/39 L 92 09/19/22 15:40 99 H 28 H 69/42 L 97 09/19/22 15:38 100 H 26 H 76/42 L 96 09/19/22 17:05 112/48 L 09/19/22 17:03 88 35 H 79/50 L 94 09/19/22 17:00 88 30 H 103/46 L 94 09/19/22 16:55 86 35 H 74/54 L 94 09/19/22 16:50 87 33 H 102/44 L 09/19/22 16:45 88 28 H 78/45 L 95 09/19/22 16:40 90 31 H 95/45 L 94 09/19/22 16:35 93 H 34 H 87/45 L 93 09/19/22 16:30 93 H 29 H 88/45 L 95 09/19/22 16:25 94 H 31 H 102/46 L 99 09/19/22 16:20 94 H 28 H 110/47 L 98 09/19/22 16:15 96 H 35 H 113/41 L 98 04/22/23 16:10 96 H 30 H 79/40 L 98 09/19/22 16:06 104 H 23 107/48 L 97 09/19/22 16:02 100 H 29 H 98/46 L 97 09/19/22 15:42 93 H 31 H 104/47 L 09/19/22 15:44 97 H O2 Del Method O2 Flow Rate FiO2 09/20/22 01:30 09/20/22 01:30 09/20/22 01:19 09/20/22 01:19 09/20/22 01:15 09/20/22 01:15 09/20/22 01:02 09/20/22 01:02 09/20/22 01:00 09/20/22 01:00 09/20/22 00:45 09/20/22 00:45 09/20/22 00:30 09/20/22 00:30 09/20/22 00:00 09/20/22 00:00 09/19/22 23:53 09/19/22 23:53 09/19/22 23:27 09/19/22 23:27 09/19/22 23:23 09/19/22 23:23 09/19/22 23:04 09/19/22 23:04 09/19/22 23:00 09/19/22 23:00 09/19/22 22:00 09/19/22 22:00 09/19/22 21:45 09/19/22 21:45 09/19/22 21:15 09/19/22 21:15 09/19/22 20:45 09/19/22 20:45 09/19/22 23:03 50 09/19/22 20:04 45 09/19/22 20:52 Mechanical Vent 45 09/19/22 20:10 Mechanical Vent 45 09/19/22 20:00 Mechanical Vent 45 09/19/22 15:24 Room Air 09/19/22 15:35 Room Air 09/19/22 15:56 09/19/22 15:51 Nasal Cannula 4 09/19/22 15:47 Non-rebreather 15 09/19/22 15:40 Non-rebreather 09/19/22 15:38 Non-rebreather 09/19/22 17:05 09/19/22 17:03 Nasal Cannula 4 09/19/22 17:00 Nasal Cannula 4 09/19/22 16:55 Nasal Cannula 4 09/19/22 16:50 09/19/22 16:45 Nasal Cannula 4 09/19/22 16:40 Nasal Cannula 4 09/19/22 16:35 Nasal Cannula 4 09/19/22 16:30 Nasal Cannula 4 09/19/22 16:25 Nasal Cannula 4 09/19/22 16:20 Nasal Cannula 4 09/19/22 16:15 Nasal Cannula 4 09/19/22 16:10 Nasal Cannula 4 09/19/22 16:06 Nasal Cannula 4 09/19/22 16:02 09/19/22 15:42 09/19/22 15:44
[2022-09-20] MEDS ORDERED: SODIUM BICARBONATE 8.4% 150 MEQ in WATER, STERILE 1,000 ML IV SCH (03:00)
[2022-09-20 03:30] LABS: Basophils # (auto) 0.01 K/uL (0-0.2); Basophils % (auto) 0.2 %; Echinocytes 2+; Eosinophils # (auto) 0.01 K/uL (0-0.50); Eosinophils % (auto) 0.2 %; Hematocrit (blood only) 27.3 % (42.0-52.0); Hemoglobin 9.2 g/dl (14.0-18.0); Immature Granulocytes # (auto) 0.01 K/uL (0.01-0.20); Immature Granulocytes % (auto) 0.2 %; Lymphocytes # (auto) 1.23 K/uL (1.2-3.4); Mean Corpuscular Hemoglobin 31.6 pg (25.0-34.0); Mean Corpuscular Hgb Conc 33.7 g/dL (32.0-36.0); Mean Corpuscular Volume 93.8 fL (80.0-100.0); Mean Platelet Volume 10.6 fL (9.4-12.4); Monocytes # (auto) 0.56 K/uL (0.11-0.59); Monocytes % (auto) 9.6 %; Neutrophils # (auto) 4.04 K/uL (1.40-6.50); Neutrophils % (auto) 68.8 %; Platelet Count 162 K/uL (130-400); RDW Coefficient of Variation 12.3 % (11.5-14.5); Red Blood Count 2.91 M/uL (4.70-6.10); White Blood Count 5.86 K/ul (4.8-10.8)
[2022-09-20 03:43] LABS: Albumin Globulin Ratio 2.1 (0.9-2); Albumin Level 2.1 gm/dl (3.4-5.0); BUN Creatinine Ratio 14.5 (10-20); Bilirubin,Total 0.3 mg/dl (0.2-1.0); Calcium 6.3 mg/dl (8.6-10.3); Creatinine Clr Calc Pharmacy 40.3 ml/min; Est GFR (African American) 54.6 ml/min; Est GFR (Non-African American) 47.1 ml/min; Phosphorus 3.2 mg/dl (2.5-4.9); Potassium 3.8 mmol/L (3.5-5.1); Total Protein 3.1 gm/dl (6.0-8.3); Troponin I High Sensitivity 120.1 pg/ml (0-20)
[2022-09-20 03:50] LABS: Fibrinogen 170 mg/dl (184-400); INR 1.4 (0.9-1.1); Partial Thromboplastin Ratio 1.8; Prothrombin Time 15.1 Seconds (9.0-12.0)
[2022-09-20 04:19] LABS: Partial Thromboplastin Time 52.1 Seconds (21.0-31.0)
[2022-09-20] MEDS ORDERED: Nursing to Pharmacy Communication SCH (04:30)
--- NOTE | 2022-09-20 04:43 | Communication Note ---
Date of Service: September 20, 2022 Patient is gone progressively unstable throughout the night. He is required higher doses of vasopressors and multiple fluid boluses. He is now on norepin ephrine, vasopressin, and epinephrine drips to support his blood pressure. On examination the patient now had rigid abdomen and blue ischemic stoma. I did send the patient for CT abdomen and pelvis and read is currently pending. I spoke with general surgery, and based on patient's critical condition he would be poor candidate for additional surgical intervention. General surgery did speak to the patient's daughter and I also spoke with the patient's daughter over the phone. She was made aware of the patient's worsening condition, and family has presented to the bedside. Suspect this is likely ischemic bowel and lactate now increased to 6.2. His metabolic acidosis is worsening despite addition of bicarb drip and multiple bicarb boluses. Family is in agreement that the patient would want to be made comfortable. He is currently DNR in the event of cardiac arrest. There were 2 more family members coming and when the family is ready we will transition to comfort care with palliative withdrawal. CRITICAL CARE TIME - I have personally spent 65 minutes of critical care time in the direct management of this patient. This is a life/limb threatening event. This includes time spent evaluating patient, direct bedside care, chart review, placing orders, interpretation of diagnostic studies, discussion with consultants, patient, and family members, as well as other required patient management activities. This time is exclusive of all separately billable procedures, and teaching time and separate from and in addition to any other critical care service time. Coding Level of Care Code 46532 CRITICAL CARE 1ST 30-74M
[2022-09-20] MEDS: PIPERACILLIN/TAZOBACTAM 4.5 GM in DEXTROSE 5% 100 ML IV SCH (06:04)
--- NOTE | 2022-09-20 06:32 | CT Scan Report ---
Exam(s): CT ABDOMEN + PELVIS Without Contrast EXAM: CT Abdomen and Pelvis Without Intravenous Contrast CLINICAL HISTORY: Reason for exam: Abd distension, shock. TECHNIQUE: Axial computed tomography images of the abdomen and pelvis without intravenous contrast. CTDI is 8.23 mGy and DLP is 404.37 mGy-cm. Automated exposure control was utilized for the study. A dose lowering technique was utilized adhering to the principles of ALARA. COMPARISON: No relevant prior studies available. FINDINGS: Lung bases: See below. Pleural space: Bilateral moderate-sized pleural effusions with dependent subsegmental atelectasis. ABDOMEN: Liver: Unremarkable. Gallbladder and bile ducts: Unremarkable. No calcified stones. No ductal dilation. Pancreas: Unremarkable. No ductal dilation. Spleen: Unremarkable. No splenomegaly. Adrenals: Unremarkable. No mass. Kidneys and ureters: Unremarkable. No obstructing stones. No hydronephrosis. Stomach and bowel: There appears to be diffuse small bowel wall thickening in the abdomen. No obstruction. PELVIS: Appendix: No findings to suggest acute appendicitis. Bladder: Mild diffuse urinary bladder wall thickening. Ariza catheter bulb seen in the urinary bladder lumen. No stones. Reproductive: Unremarkable as visualized. ABDOMEN and PELVIS: Intraperitoneal space: Small ascites. Bones/joints: No acute fracture. No dislocation. Soft tissues: Moderate amount of soft tissue free air seen in the abdomen. Skin jacqueline and air seen in the midline anterior abdominal wall at the site of surgical incision. Vasculature: Moderate atherosclerotic calcifications seen in the aortoiliac arteries. No abdominal aortic aneurysm. Lymph nodes: Unremarkable. No enlarged lymph nodes. Tubes, lines and devices: Postsurgical drain seen in the pelvis. IMPRESSION: 1. Moderate bilateral pleural effusions with dependent subsegmental atelectasis. 2. Moderate pneumoperitoneum 3. Diffuse small bowel wall edema, of indeterminate etiology Electronically signed by: Casa Rubio MD 09/20/22 06:31 AM
[2022-09-20] MEDS ORDERED: ONDANSETRON INJ 2 MG/ML 2 ML VIAL IV PRN (07:05)
[2022-09-20] MEDS ORDERED: MoRPHine BOLUS from BAG IV PRN (07:05)
[2022-09-20] MEDS ORDERED: MoRPHine SULF/NSS 250 MG/250 ML BTL IV SCH (07:15)
[2022-09-20] MEDS: HYDROCORTISONE SOD 50 MG in SYRINGE 0 ML IV SCH (07:55)
--- NOTE | 2022-09-20 08:25 | Discharge Summary ---
Date of Service September 20, 2022 Admission HPI Per Admitting Provider History obtained from records. Unable to obtain history from patient secondary to intubated state. Medical history significant for nonocclusive CAD, chronic LBBB, hypertension, prediabetes as per records, past alcohol abuse, ongoing tobacco abuse. Last confinement 2015 under General Surgery service for acute appendicitis status post laparoscopic appendectomy. Patient experience sharp twisting lower abdominal pain this morning attributed to pulled muscle. Patient consulted ER but subsequently sent home. Patient later reported to have syncopal event at home. Patient noted to be confused. SBP 60s upon EMS arrival. O2 sats 80s upon arrival at the ER. Perforated viscus and pneumoperitoneum noted on CT. IV Cefoxitin and Zosyn administered at the ER. Patient underwent emergent ex lap, sigmoidectomy, Marleen's procedure and ostomy creation for perforated sigmoid colon. SBP noted 70s postop. Patient transferred to ICU on mechanical ventilation. Hospital service requested to admit patient by surgeon due to multiple medical issues. Medical History as above Surgical History : Bowel surgery, appendectomy, left ear surgery Family History : Lung cancer, heart disease, stroke Personal/Social history : Half pack daily, past alcohol abuse as per records, retired from construction work Admission Exam Per Admitting Provider GENERAL: Sedated, intubated, no respiratory distress SKIN: Pallor, cool HEENT: Pale palpebral conjunctivae, no ptosis, dry buccal mucosa, ET in place NECK : Supple, no tenderness CHEST : Decreased breath sounds, patient expiratory wheezes, no tenderness HEART : RRR, no obvious murmurs ABDOMEN: Some distention, dressing in place EXTREMITIES : Minimal LE swelling, no LE tenderness, no other conspicuous deformities noted NEUROLOGIC : Sedated, no facial asymmetry, gait and stance not assessed Principal Diagnosis Septic shock Perforated viscus Acute renal failure Discharge Data Allergies Allergy/AdvReac Type Severity Reaction Status Date / Time No Known Drug Allergies Allergy Unknown Verified 09/19/22 22:57 Consultations 09/19/22 20:45 Consult Hospitalist Routine 09/19/22 21:09 Consult Dukey Rider Routine 09/20/22 07:05 Consult Palliative Care Routine Procedures Performed Operation Date: 09/19/22 17:00 Actual Procedures p Exploratory Laparotomy, Sigmoidectomy, heartman procedure, Creation of Ostomy(Not Applicable) - Susy Duran MD Laboratory Results WBC 5.86 K/ul (4.8-10.8) 09/20/22 02:39 RBC 2.91 M/uL (4.70-6.10) L 09/20/22 02:39 Hgb 9.2 g/dl (14.0-18.0) L 09/20/22 02:39 POC Hgb 10.2 g/dl (14.0-18.0) L 09/20/22 02:27 Hct 27.3 % (42.0-52.0) L 09/20/22 02:39 POC Hct 30 % (42-52) L 09/20/22 02:27 MCV 93.8 fL (80.0-100.0) 09/20/22 02:39 MCH 31.6 pg (25.0-34.0) 09/20/22 02:39 MCHC 33.7 g/dL (32.0-36.0) 09/20/22 02:39 RDW Std Deviation 43.0 fL (36.4-46.3) 09/20/22 02:39 RDW Coeff of Samantha 12.3 % (11.5-14.5) 09/20/22 02:39 Plt Count 162 K/uL (130-400) 09/20/22 02:39 MPV 10.6 fL (9.4-12.4) 09/20/22 02:39 Immature Gran % (Auto) 0.2 % 09/20/22 02:39 Neut % (Auto) 68.8 % 09/20/22 02:39 Lymph % (Auto) 21.0 % 09/20/22 02:39 [place] % (Auto) 9.6 % 09/20/22 02:39 Eos % (Auto) 0.2 % 09/20/22 02:39 Baso % (Auto) 0.2 % 09/20/22 02:39 Neut # (Auto) 4.04 K/uL (1.40-6.50) 09/20/22 02:39 Lymph # (Auto) 1.23 K/uL (1.2-3.4) 09/20/22 02:39 [place] # (Auto) 0.56 K/uL (0.11-0.59) 09/20/22 02:39 Eos # (Auto) 0.01 K/uL (0-0.50) 09/20/22 02:39 Baso # (Auto) 0.01 K/uL (0-0.2) 09/20/22 02:39 Immature Gran # (Auto) 0.01 K/uL (0.01-0.20) 09/20/22 02:39 Toxic Vacuolation 1+ 09/19/22 21:16 Dohle Bodies 1+ 09/19/22 21:16 Echinocytes 2+ 09/20/22 02:39 PT 15.1 Seconds (9.0-12.0) H 09/20/22 02:39 INR 1.4 (0.9-1.1) H 09/20/22 02:39 APTT 52.1 Seconds (21.0-31.0) H* 09/20/22 02:39 PTT Ratio 1.8 09/20/22 02:39 Fibrinogen 170 mg/dl (184-400) L 09/20/22 02:39 Sample Site Art Line 09/20/22 02:27 POC pH 7.17 (7.35-7.45) L* 09/20/22 02:27 POC pCO2 54 mmHg (35-46) H 09/20/22 02:27 POC pO2 338 mmHg (80-95) H 09/20/22 02:27 POC HCO3 20 saad/L (19-24) 09/20/22 02:27 POC Total CO2 22 mmol/L (24-31) L 09/20/22 02:27 POC Base Excess -9.0 saad/L (-9-1.8) 09/20/22 02:27 ABG pH (Temp Correct) 7.185 (7.35-7.45) L* 09/20/22 02:27 ABG pCO2 (Temp Corrct 52 mmHg (35-46) H 09/20/22 02:27 POC ABG pO2 at Pt Temp 334 09/20/22 02:27 POC ABG O2 Sat 100.0 % (90-95) H 09/20/22 02:27 Herb Test NA 09/20/22 02:27 O2 Delivery Device Ventilator 09/20/22 02:27 POC O2 Rate 16 09/19/22 23:11 Minute Ventilation 8.0 09/19/22 23:11 POC FiO2 50 % 09/19/22 23:11 Tidal Volume 500 04/22/23 23:11 PEEP 8 09/19/22 23:11 POC Sodium 135 mmol/L (135-144) 09/20/22 02:27 Sodium 139 mmol/L (136-145) 09/20/22 02:35 POC Potassium 4.3 mmol/L (3.3-5.0) 09/20/22 02:27 Potassium 3.8 mmol/L (3.5-5.1) 09/20/22 02:35 Chloride 114 mmol/L (98-107) H 09/20/22 02:35 Carbon Dioxide 18 mmol/L (21-32) L 09/20/22 02:35 Anion Gap 7 (3-11) 09/20/22 02:35 BUN 21 mg/dl (6-23) 09/20/22 02:35 Creatinine 1.45 mg/dl (0.6-1.4) H 09/20/22 02:35 Est Cr Clr Drug Dosing 40.3 ml/min 09/20/22 02:35 Est GFR ( Amer) 54.6 ml/min 09/20/22 02:35 Est GFR (Non-Af Amer) 47.1 ml/min 09/20/22 02:35 BUN/Creatinine Ratio 14.5 (10-20) 09/20/22 02:35 Glucose 125 mg/dl (70-99(Fasting)) H 09/20/22 02:35 POC Glucose 83 mg/dl (70-99) 09/19/22 15:23 Estimat Average Glucose 114 mg/dl 09/20/22 02:35 Hemoglobin A1c 5.6 % (4.5-5.6) 09/20/22 02:35 Lactate 6.2 mmol/L (0.4-2.0) H* 09/20/22 04:07 Calcium 6.3 mg/dl (8.6-10.3) L 09/20/22 02:35 Phosphorus 3.2 mg/dl (2.5-4.9) 09/20/22 02:35 Magnesium 2.0 mg/dl (1.7-2.4) 09/20/22 02:35 Total Bilirubin 0.3 mg/dl (0.2-1.0) 09/20/22 02:35 AST 38 U/L (13-39) 09/20/22 02:35 ALT 16 U/L (7-52) 09/20/22 02:35 Alkaline Phosphatase 31 U/L (34-104) L 09/20/22 02:35 Troponin I High Sens 120.1 pg/ml (0-20) H* D 09/20/22 02:35 Total Protein 3.1 gm/dl (6.0-8.3) L D 09/20/22 02:35 Albumin 2.1 gm/dl (3.4-5.0) L 09/20/22 02:35 Globulin 1.0 gm/dl (2.5-4.0) L 09/20/22 02:35 Albumin/Globulin Ratio 2.1 (0.9-2) H 09/20/22 02:35 Lipase 23 U/L (11-82) 09/19/22 21:16 TSH 6.984 uIu/ml (0.300-4.500) H 09/19/22 15:35 Free T4 1.00 ng/dl (0.61-1.60) 09/19/22 15:35 Random Cortisol 20.39 mcg/dl 09/19/22 21:16 Urine Color Dark Yellow 09/20/22 01:30 Urine Appearance Cloudy (Clear) A 09/20/22 01:30 Urine pH 5.0 (4.5-7.5) 09/20/22 01:30 Ur Specific [place] 1.043 (1.000-1.030) H 09/20/22 01:30 Urine Protein 1+ (Negative) H 09/20/22 01:30 Urine Glucose (UA) Negative (Negative) 09/20/22 01:30 Urine Ketones Trace (Negative) H 09/20/22 01:30 Urine Blood 3+ (Negative) H 09/20/22 01:30 Urine Nitrite Negative (Negative) 09/20/22 01:30 Urine Bilirubin Negative (Negative) 09/20/22 01:30 Urine Urobilinogen Negative (Negative) 09/20/22 01:30 Ur Leukocyte Esterase Trace (Negative) H 09/20/22 01:30 Urine WBC (Auto) 1-5 /hpf (0-5) 09/20/22 01:30 Urine RBC (Auto) 0-4 /hpf (0-4) 09/20/22 01:30 U Hyaline Cast (Auto) 5-10 /lpf (0-5) H 09/20/22 01:30 U Epithel Cells (Auto) 20-30 /lpf (0-5) H 09/20/22 01:30 Urine Bacteria (Auto) Negative (Negative) 09/20/22 01:30 Urine Yeast Not Reportable 09/20/22 01:30 Nasal Screen MRSA (PCR) Negative (Negative) 09/20/22 01:30 SARS-CoV-2 (PCR) NEGATIVE (Negative) 09/20/22 01:30 Influenza Type A (PCR) Negative (Neg) 09/20/22 01:30 Influenza Type B (PCR) Negative (Neg) 09/20/22 01:30 RSV (RT-PCR) Negative (Neg) 09/20/22 01:30 Staphylococcus sp PCR DETECTED (NotDetected) A 09/19/22 16:22 mecA/C-Methicil Resis Gene Not Detected (NotDetected) 09/19/22 16:22 Staph epidermidis (PCR) DETECTED (NotDetected) A 09/19/22 16:22 Bld Cult ID Panel PCR See PCR Comment (NotDetected) 09/19/22 16:22 Blood Type A Positive 09/19/22 16:22 Blood Type Recheck A Positive 09/19/22 17:02 Antibody Screen NEGATIVE 09/19/22 16:22 Crossmatch See Detail 09/19/22 16:22 Impressions Chest CTA 09/19/22 15:33 CT angio chest PE protocol HISTORY: 72 years-old Male with PE. Acute hypotension with shortness of breath, chest and abdominal pain TECHNIQUE: Multiple CTA images of the chest were obtained after the intravenous administration of 114 ml Optiray. Coronal and sagittal MIPS were obtained from the axial data set and were submitted for review. All measurements were obtained according to NASCET criteria. A dose lowering technique was utilized adhering to the principles of ALARA. COMPARISON: CT abdomen and pelvis of same day, chest CT 04/22/2012 FINDINGS: CTA: Mild cardiomegaly. Extensive coronary artery calcifications. Atherosclerosis of the aorta without aneurysm. No pulmonary emboli identified. CT CHEST: No thyroid nodule or lymphadenopathy. Moderate severe emphysema with biapical pleural-parenchymal scarring. Mild subsegmental bibasilar atelectasis. Bronchial wall thickening as suggestive of pneumonia. Mild tracheobronchial secretions. Large amount of upper abdominal pneumoperitoneum with ascites. Fluid-filled and distended esophagus. Layering debris noted within the gastric lumen. Age- indeterminate compression deformities of the T4, T6 and T7 vertebral bodies without retropulsion which are favored to be chronic. IMPRESSION: 1. Emphysema with bronchitis and mild tracheobronchial secretions. 2. Large amount of upper abdominal pneumoperitoneum with ascites. Findings compatible with perforated viscus. Please refer to the CT abdomen and pelvis study of same day for further discussion. 3. No pulmonary emboli identified. 4. Distended fluid-filled esophagus. ACT 112: Negative or not required by law. The above report was generated using voice recognition software. It may contain grammatical, syntax or spelling errors. Electronically signed by: Kev Navarro M.D. 09/19/2022 4:[address] 09/19/22 15:47 CT head/brain wo con CLINICAL HISTORY: 72 years-old Male with syncope. Acute syncope TECHNIQUE: Multiple axial CT images of the head were obtained without contrast. A dose lowering technique was utilized adhering to the principles of ALARA. CT DOSE: 1472.59 mGy.cm COMPARISON: 11/22/2014 FINDINGS: No acute intracranial hemorrhage, midline shift, intracranial mass, hydrocephalus, territorial ischemia or abnormal extra-axial collection. Involutional changes with chronic microvascular ischemic disease. Low-lying cerebellar tonsils. Cerebral vascular calcifications. The calvarium is intact. Large left mastoid and middle ear effusions. Opacified right maxillary sinus with volume loss. Severe mucosal thickening of the sphenoid sinuses. The right mastoid air cells are clear. IMPRESSION: 1. No acute intracranial abnormality identified. 2. Paranasal sinus disease as above with chronic large left mastoid and middle ear effusions. ACT 112: Negative or not required by law. The above report was generated using voice recognition software. It may contain grammatical, syntax or spelling errors. Electronically signed by: Kev Navarro M.D. 09/19/2022 4:14 PM Chest X-Ray 09/20/22 02:24 XR chest 1V portable HISTORY: 72 years-old Male hypoxia acute respiratory failure COMPARISON: CT abdomen and pelvis of same day, Chest radiograph 09/19/2022 TECHNIQUE: AP view of the chest FINDINGS: Cardiac mediastinal and hilar silhouettes are unchanged. Status post placement of an endotracheal tube terminating 4.8 cm superior to the mike. Enteric tube courses into the stomach. Right IJ central venous catheter distal tip overlies the right atrium. Emphysema with chronic interstitial coarsening. No pneumothorax. Small pleural effusions with bibasilar atelectasis. Degenerative changes of the shoulders and spine. IMPRESSION: 1. Lines and tubes as above. 2. No pneumothorax identified. 3. Small pleural effusions with mild bibasilar atelectasis. 4. Emphysema with chronic interstitial coarsening. 5. Pneumoperitoneum is better seen on the comparison CT abdomen pelvis. ACT 112: Negative or not required by law. The above report was generated using voice recognition software. It may contain grammatical, syntax or spelling errors. Electronically signed by: Kev Navarro M.D. 09/20/2022 9:34 AM Abdomen/Pelvis CT 09/20/22 02:28 Exam(s): CT ABDOMEN + PELVIS Without Contrast EXAM: CT Abdomen and Pelvis Without Intravenous Contrast CLINICAL HISTORY: Reason for exam: Abd distension, shock. TECHNIQUE: Axial computed tomography images of the abdomen and pelvis without intravenous contrast. CTDI is 8.23 mGy and DLP is 404.37 mGy-cm. Automated exposure control was utilized for the study. A dose lowering technique was utilized adhering to the principles of ALARA. COMPARISON: No relevant prior studies available. FINDINGS: Lung bases: See below. Pleural space: Bilateral moderate-sized pleural effusions with dependent subsegmental atelectasis. ABDOMEN: Liver: Unremarkable. Gallbladder and bile ducts: Unremarkable. No calcified stones. No ductal dilation. Pancreas: Unremarkable. No ductal dilation. Spleen: Unremarkable. No splenomegaly. Adrenals: Unremarkable. No mass. Kidneys and ureters: Unremarkable. No obstructing stones. No hydronephrosis. Stomach and bowel: There appears to be diffuse small bowel wall thickening in the abdomen. No obstruction. PELVIS: Appendix: No findings to suggest acute appendicitis. Bladder: Mild diffuse urinary bladder wall thickening. Ariza catheter bulb seen in the urinary bladder lumen. No stones. Reproductive: Unremarkable as visualized. ABDOMEN and PELVIS: Intraperitoneal space: Small ascites. Bones/joints: No acute fracture. No dislocation. Soft tissues: Moderate amount of soft tissue free air seen in the abdomen. Skin jacqueline and air seen in the midline anterior abdominal wall at the site of surgical incision. Vasculature: Moderate atherosclerotic calcifications seen in the aortoiliac arteries. No abdominal aortic aneurysm. Lymph nodes: Unremarkable. No enlarged lymph nodes. Tubes, lines and devices: Postsurgical drain seen in the pelvis. IMPRESSION: 1. Moderate bilateral pleural effusions with dependent subsegmental atelectasis. 2. Moderate pneumoperitoneum 3. Diffuse small bowel wall edema, of indeterminate etiology Electronically signed by: Casa Rubio MD 09/20/22 06:31 AM Ordered Studies 09/19/22 15:33 CT Abd and Pelvis [CT abd pelvis IV con only] Stat CT angio chest PE protocol Stat 09/19/22 15:47 CT head/brain wo con Stat 09/20/22 02:28 CT abd pelvis wo con Stat Hospital Course (1) Septic shock: Septic shock Moderate pneumoperitoneum Perforated viscus Acute kidney injury Acute respiratory failure with hypoxia and hypercarbia Acute metabolic encephalopathy Acute metabolic acidosis S/P Exploratory Laparotomy, Sigmoidectomy, Marleen's procedure, Creation of Ostomy by on 09/19/22 Troponin elevation likely Type II WI H/O nonocclusive CAD, has not had Cardiology follow-up since 2015 cardiac catheterization chronic LBBB prediabetes as per records past alcohol abuse ongoing tobacco abuse Patient is a 72-year-old male with multiple comorbidities presented with lower abdominal pain which she initially attributed to be pulmonary related came to ED for further evaluation. Patient had a syncopal episode at home as per records. Patient was found to be hypotensive, hypoxic and was confused as per records. Patient underwent emergent exploratory laparotomy, sigmoidectomy, Marleen's procedure colostomy creation for perforated sigmoid colon. Patient was then transferred to ICU postsurgically and was on mechanical ventilation. Patient was evaluated by manager title and general surgery. Patient declined and had multi organ failure. He was aggressively treated for septic shock with 3 pressors. Patient also received empiric antibiotics and IV fluids were administered as well. Despite aggressive management, patient continued to decline as per record. Dukey Rider discussed with family. "In discussions with the family it was determined it would not be consistent with the patient's wishes to continue heroic measures and the decision was made to stop life- sustaining efforts and transition to comfort. Patient at 8:04 AM with family at the bedside". Family is made aware by manager title. Total Time Total Time Spent Total Time Spent (In Minutes): 35 minutes Discharge Plan Discharge Items Patient Disposition: Other Date/Time: 09/20/22 08:04
--- NOTE | 2022-09-20 08:27 | Death Pronouncement Note ---
Date of Service September 20, 2022 Pronouncement Note Admission Date Admission Date: September 19, 2022 Date and Time of Date of : 09/20/22 Time of : 08:04 PCOD Preliminary cause of : Sepsis Contributing Factors (1) Septic shock: Contributing factors: Perforated Viscous Acute Renal Failure Hospital Course Hospital Course: Patient is a 72-year-old male who presented to the emergency department after presyncopal event. He was found to have intra-abdominal free air and emergently taken to the operating room. He is found to have a perforated viscus and significant intra-abdominal contamination with bowel contents. Postoperatively he came to the ICU and continued to decline into multisystem organ failure. In discussions with the family it was determined it would not be consistent with the patient's wishes to continue heroic measures and the decision was made to stop life-sustaining efforts and transition to comfort. Patient at 8:04 AM with family at the bedside Additional Data Confirmation of : no pulse, no respirations, no heart sounds, pupils fixed and dilated and other (Asystole on environmental monitoring technician) Family: at bedside Attending/PCP notified?: Yes Attending physician: Grover Beckett MD Coding Level of Care Code None Diagnoses Septic shock A41.9; R65.21
--- NOTE | 2022-09-20 09:35 | XRay Report ---
XR chest 1V portable HISTORY: 72 years-old Male hypoxia acute respiratory failure COMPARISON: CT abdomen and pelvis of same day, Chest radiograph 09/19/2022 TECHNIQUE: AP view of the chest FINDINGS: Cardiac mediastinal and hilar silhouettes are unchanged. Status post placement of an endotracheal tub e terminating 4.8 cm superior to the mike. Enteric tube courses into the stomach. Right IJ central venous catheter distal tip overlies the right atrium. Emphysema with chronic interstitial coarsening. No pneumothorax. Small pleural effusions with bibasilar atelectasis. Degenerative changes of the patt ulders and spine. IMPRESSION: 1. Lines and tubes as above. 2. No pneumothorax identified. 3. Small pleural effusions with mild bibasilar atelectasis. 4. Emphysema with chronic interstitial coarsening. 5. Pneumoperitoneum is better seen on the comparison CT abdomen pelvis. ACT 112: Negative or not required by law. The above report was generated using voice recognition software. It may contain grammatical, syntax o r spelling errors. Electronically signed by: Kev Navarro M.D. 09/20/2022 9:34 AM
[2022-09-20 11:01] LABS: Estimated Average Glucose 114 mg/dl; Hemoglobin A1C 5.6 % (4.5-5.6)
[2022-09-20 12:35] LABS: A calco-baum cmplx NotReported Not Detected (NotDetected); Bact fragilis Not Reported Not Detected (NotDetected); C auris Not Reported Not Detected (NotDetected); Calbicans Not Reported Not Detected (NotDetected); Candida glabrata Not Reported Not Detected (NotDetected); Candida krusei Not Reported Not Detected (NotDetected); Cneoformans/gatti Not Reported Not Detected (NotDetected); Cparapsilosis Not Reported Not Detected (NotDetected); Ctropicalis Not Reported Not Detected (NotDetected); E cloacae compx Not Reported Not Detected (NotDetected); Efaecalis Not Reported Not Detected (NotDetected); Efaecium Not Reported Not Detected (NotDetected); Enterobacterales Not Reported Not Detected (NotDetected); Escherichia coli Not Reported Not Detected (NotDetected); H influenzae Not Reported Not Detected (NotDetected); K aerogenes Not Reported Not Detected (NotDetected); Koxytoca Not Reported Not Detected (NotDetected); Kpneumoniae grp Not Reported Not Detected (NotDetected); Lmonocyt Not Reported Not Detected (NotDetected); N meningitidis Not Reported Not Detected (NotDetected); P aeruginosa Not Reported Not Detected (NotDetected); Proteus spp Not Reported Not Detected (NotDetected); Salmonella spp Not Reported Not Detected (NotDetected); Smarcescens Not Reported Not Detected (NotDetected); Staph lugdunensis Not Reported Not Detected (NotDetected); Staphaureus Not Reported Not Detected (NotDetected); Staphepi Not Reported DETECTED (NotDetected); Staphylococcus spp. DETECTED (NotDetected); Stenmaltophilia Not Reported Not Detected (NotDetected); Strep agal(GrpB) Not Reported Not Detected (NotDetected); Strep pneum Not Reported Not Detected (NotDetected); Strep pyog (GrpA) Not Reported Not Detected (NotDetected); Strep spp Not Reported Not Detected (NotDetected); mecAC Resistant Gene Not Detected (NotDetected)
[2022-09-20 13:06] LABS: Staph spp. Not Reported DETECTED (NotDetected)
[2022-09-20 13:07] LABS: Staphylococcus epidermidis DETECTED (NotDetected)
--- NOTE | 2022-09-20 14:07 | Electrocardiogram Report ---
Test Reason : Blood Pressure : / mmHG Vent. Rate : 107 BPM Atrial Rate : 107 BPM P-R Int : 140 ms QRS Dur : 128 ms QT Int : 348 ms P-R-T Axes : 079 032 162 degrees QTc Int : 464 ms Sinus tachycardia Possible Left atrial enlargement Left bundle branch block Abnormal ECG When compared with ECG of 19-SEP-2022 06:45, Vent. rate has increased BY 38 BPM QRS duration has decreased Confirmed by Isac Bolton ([id number]) on 09/20/2022 2:07:32 PM Referred By: REFERRED SELF Confirmed By:Isac Bolton
[2022-09-20] MEDS ORDERED: CASPOFUNGIN 50 MG in SODIUM CHLORIDE 0.9% 250 ML IV SCH (21:00)
== END 2022-09-20 10:26 | disposition expired | DRG 853 ==
LOC: ED 15:14 → OR 17:37 → SUATTDRO 20:55 → 1E 20:55